=== PATIENT | male | born 1945 | race Caucasian/White ===

== ENCOUNTER → 2017-05-07 | Outpatient (REF) | payer MEDICARE ==
[2017-05-07 19:19] LABS: VITAMIN B12 LEVEL 407 PG/ML (247-911)
[2017-05-07 20:29] LABS: PERCENT SATURATION 21.5 % (19.7-50.0); TOTAL IRON BINDING CAPACITY 344 UG/DL (250-450)
[2017-05-08 12:44] LABS: PRETREATED FOLATE FOR RBCFOL 14.8 NG/ML
== END ==
LOC: M LAB REF 17:40
PROVIDERS: ATTEND Nurse Practitioner Adult Health
DX: R94.5 Abnormal results of liver function studies (principal)

== ENCOUNTER 2019-02-08 10:19 | Emergency (ER) | payer MEDICARE ==
[~2019-02-08] VITALS: Ht 172.7 cm; Wt 66.8 kg
[2019-02-08] MEDS ORDERED: RAMI1CAP22 (10:27)
[2019-02-08] MEDS ORDERED: INVO300T (10:27)
[2019-02-08] MEDS ORDERED: METF500T13 (10:27)
[2019-02-08] MEDS ORDERED: METO50TA7 (10:27)
[2019-02-08] MEDS ORDERED: NOVOINJ3 (10:27)
[2019-02-08] MEDS ORDERED: ATOR40TA75 (10:27)
[2019-02-08] MEDS ORDERED: JANU100T (10:27)
--- NOTE | 2019-02-08 11:46 | REP ---
Right lower extremity Duplex Doppler venous ultrasound: Real time compression and duplex Doppler interrogation of the right lower extremity deep venous system is performed. The right common femoral, superficial femoral and popliteal veins are fully compressible with transducer pressure and demonstrate normal spontaneous and phasic flow, without evidence of deep venous thrombosis. Impression: No evidence of deep venous thrombosis of the right lower extremity femoral popliteal venous system. Electronically Signed by Sampson Booker MD 02/08/2019 11:37 A
[2019-02-08 12:34] VITALS: BP 110/59
== END 2019-02-08 12:55 | disposition home or self-care (01) ==
LOC: M ED 10:19
DX: M62.831 Muscle spasm of calf (principal); M79.661 Pain in right lower leg; I10 Essential (primary) hypertension; E78.00 Pure hypercholesterolemia, unspecified; E11.9 Type 2 diabetes mellitus without complications; Z79.899 Other long term (current) drug therapy; Z79.4 Long term (current) use of insulin; Z88.2 Allergy status to sulfonamides; J30.1 Allergic rhinitis due to pollen

== ENCOUNTER 2019-06-14 09:10 | Emergency (ER) | payer MEDICARE, MEDICAID ==
[~2019-06-14] VITALS: Ht 170.2 cm; Wt 112.0 kg
[~2019-06-14 09:10] MED LIST: ATOR40TA75; INVO300T; JANU100T; METF500T13; METO50TA7; NOVOINJ3; RAMI1CAP22
[2019-06-14] MEDS ORDERED: LEVE1INJ5 (09:26)
[2019-06-14 10:00] LABS: BASO % 0.6 % (0.0-1.0); EOS # 0.1 10^3/uL (0.0-0.5); EOS % 1.7 % (0.0-3.0); HEMATOCRIT 43.6 % (42.0-52.0); HEMOGLOBIN 14.4 g/dl (13.5-17.5); LYMPH # 1.2 10^3/uL (1.5-5.0); LYMPH % 16.3 % (24.0-44.0); MEAN CORPUSCULAR HEMOGLOBIN 32.5 pg (27.0-33.0); MEAN CORPUSCULAR VOLUME 98.4 fl (80.0-96.0); MONO # 0.5 10^3/uL (0.0-0.8); MONO % 6.6 % (0.0-5.0); NEUTROPHILS # 5.3 10^3/uL (1.5-8.5); NEUTROPHILS % 74.5 % (36.0-66.0); PLATELET COUNT, AUTOMATED 162 10^3/uL (150-450); RED BLOOD COUNT 4.43 10^6/uL (4.30-6.10); WHITE BLOOD COUNT 7.1 10^3/uL (4.0-10.0)
[2019-06-14] MEDS ORDERED: ONDANSETRON 4 MG TAB (S0181) PO ONE (10:00)
[2019-06-14] MEDS ORDERED: MECLIZINE 25 MG TABLET PO ONE (10:00)
--- NOTE | 2019-06-14 10:08 | REP ---
CT brain without contrast: History: CVA. CT findings: Preliminary digital detacher radiograph is unremarkable. Bone window settings show minimal mucosal thickening in the right anterior ethmoid air cells. Visualized paranasal sinuses are otherwise clear. No bony calvarial lesion is seen. There is vascular calcification in the distal internal carotid arteries bilaterally. On soft tissue window settings, there is mild to moderate generalized atrophy. Booker-white differentiation pattern is intact. There is no evidence of intracranial hemorrhage. No extra-axial fluid collection is seen. No mass, infarct, or midline shift is seen. Impression: No acute intracranial abnormality. Electronically Signed by Meet Barnes MD 06/14/2019 10:06 A
--- NOTE | 2019-06-14 10:18 | REP ---
Clinical: Cerebrovascular accident . Comparison: None . Findings: The mediastinum and cardiac silhouette are stable and within normal limits for portable technique. The lung quick demonstrate chronic-appearing changes without acute consolidation, effusion, or pneumothorax. Skeletal structures are intact. Impression: No acute cardiopulmonary process appreciated. Electronically Signed by Jose Anderson MD 06/14/2019 10:09 A
[2019-06-14 10:31] LABS: ALBUMIN 3.6 GM/DL (3.2-5.2); ALT/SGPT 55 U/L (12-78); BILIRUBIN,TOTAL 0.4 MG/DL (0.2-1.0); BLOOD UREA NITROGEN 17 MG/DL (7-18); CALCIUM LEVEL 8.9 MG/DL (8.8-10.2); CARBON DIOXIDE LEVEL 31 MEQ/L (21-32); CHLORIDE LEVEL 106 MEQ/L (98-107); CREATININE FOR GFR 1.21 MG/DL (0.70-1.30); GLOMERULAR FILTRATION RATE > 60.0 (>42); GLUCOSE, FASTING 142 MG/DL (70-100); POTASSIUM SERUM 4.4 MEQ/L (3.5-5.1); SODIUM LEVEL 142 MEQ/L (136-145); TOTAL PROTEIN 7.2 GM/DL (6.4-8.2)
[2019-06-14 10:57] LABS: INR 1.3; PARTIAL THROMBOPLASTIN TIME 27.8 SECONDS (25.0-38.4)
[2019-06-14 11:19] LABS: CK-MB VALUE MASS 1.5 NG/ML (<3.6); CPK CREATINE PHOSPHOKINASE 105 U/L (39-308); MB/CK RELATIVE INDEX 1.43 (< OR =4); TROPONIN I < 0.02 NG/ML (< 0.10)
[2019-06-14 14:30] VITALS: BP 161/66
[2019-06-14] MEDS ORDERED: MECL-68 PO (14:32)
--- NOTE | 2019-06-14 14:32 | REP ---
MRI BRAIN WITHOUT CONTRAST: HISTORY: Cerebellar findings since 4:30 a.m. Comparison is made with today's CT study. TECHNIQUE: Axial and sagittal imaging planes are utilized for T1- and T2-weighted scans. Sequences include spin-echo, fast spin echo, FLAIR, and diffusion weighted sequences. MRI FINDINGS: No bony calvarial lesion is appreciated. Craniocervical junction and upper cervical cord are normal in appearance. There are mucosal changes in the maxillary sinuses bilaterally. No intraorbital abnormality is appreciated. There is mild generalized volume loss. There is a moderate small vessel atherosclerotic pattern of subcortical and periventricular white matter T2 hyperintensity in the supratentorial brain bilaterally. Diffusion weighted scans show no evidence of restricted diffusion to suggest acute ischemia. There is no evidence of recent intracranial hemorrhage. No extra-axial fluid collection, mass, or midline shift is seen. IMPRESSION: Generalized volume loss and small vessel atherosclerotic changes. No acute intracranial lesion. No evidence of acute ischemia. Electronically Signed by Meet Barnes MD 06/14/2019 02:47 P
--- NOTE | 2019-06-15 08:44 | ECGEPIP ---
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
== END 2019-06-14 15:15 | disposition home or self-care (01) ==
LOC: M ED 09:10
DX: H81.4 Vertigo of central origin (principal); I10 Essential (primary) hypertension; E11.9 Type 2 diabetes mellitus without complications; Z79.4 Long term (current) use of insulin; Z79.899 Other long term (current) drug therapy; Z88.2 Allergy status to sulfonamides

== ENCOUNTER → 2019-08-05 | Outpatient (REF) | payer MEDICARE, MEDICAID ==
[~2019-08-05] MED LIST changes: +LEVE1INJ5; +MECL1TAB31 PO
[2019-08-05 13:53] LABS: FOLATE 11.6 NG/ML
== END ==
LOC: M LAB REF 12:24
PROVIDERS: ATTEND Internal Medicine
DX: R26.89 Other abnormalities of gait and mobility (principal)

== ENCOUNTER 2019-09-04 21:33 | Observation (INO) | payer MEDICARE, MEDICAID ==
[~2019-09-04] VITALS: Ht 170.2 cm; Wt 107.3 kg
[~2019-09-04 21:33] MED LIST changes: -ATOR40TA75; +ATOR40TA75 PO; -INVO300T; +INVO300T PO; -LEVE1INJ5; +LEVE1INJ5 SC; -METF500T13; +METF500T13 PO; -METO50TA7; +METO50TA7 PO; -RAMI1CAP22; +RAMI1CAP22 PO
[2019-09-04 22:20] LABS: BASO # 0.1 10^3/uL (0.0-0.2); BASO % 0.6 % (0.0-1.0); EOS # 0.1 10^3/uL (0.0-0.5); EOS % 1.5 % (0.0-3.0); HEMATOCRIT 44.7 % (42.0-52.0); HEMOGLOBIN 15.2 g/dl (13.5-17.5); LYMPH # 1.5 10^3/uL (1.5-5.0); LYMPH % 17.3 % (24.0-44.0); MEAN CORPUSCULAR HEMOGLOBIN 32.5 pg (27.0-33.0); MEAN CORPUSCULAR VOLUME 95.5 fl (80.0-96.0); MONO # 0.8 10^3/uL (0.0-0.8); MONO % 9.9 % (0.0-5.0); NEUTROPHILS % 70.3 % (36.0-66.0); PLATELET COUNT, AUTOMATED 154 10^3/uL (150-450); RED BLOOD COUNT 4.68 10^6/uL (4.30-6.10); WHITE BLOOD COUNT 8.5 10^3/uL (4.0-10.0)
[2019-09-04 22:50] LABS: INFLUENZA A AMPLIFICATION POSITIVE (NEGATIVE); INFLUENZA B AMPLIFICATION NEGATIVE (NEGATIVE)
[2019-09-04] MEDS ORDERED: HEPARIN DRIP 25,000 UNITS in IV 1 EA IV SCH (23:21)
[2019-09-04] MEDS ORDERED: HEPARIN SOD (PORCINE) 5000 UNITS/ML VIAL (J1644 PER 1000UNITS) IV ONE (23:30)
[2019-09-04] MEDS ORDERED: CLOPIDOGREL 300 MG TAB (PLAVIX) PO ONE (23:30)
[2019-09-04] MEDS ORDERED: NS 500 ML IV ONE (23:30)
[2019-09-04] MEDS ORDERED: MECLIZINE 25 MG TABLET PO ONE (23:30)
[2019-09-04] MEDS ORDERED: NITROGLYCERIN 2% OINT 1 GM *U/D* PKT TOP ONE (23:30)
[2019-09-04] MEDS ORDERED: FUROSEMIDE 40 MG/4 ML VIAL (J1940) IV ONE (23:30)
[2019-09-05] MEDS ORDERED: ACETAMINOPHEN TAB 650MG DOSE (2X325MG) PO ONE (01:00)
[2019-09-05] MEDS ORDERED: OSELTAMIVIR PHOSPHATE 75 MG CAP (TAMIFLU) PO ONE (02:15)
[2019-09-05] MEDS ORDERED: GLUCOSE 4 GM CHEW TABLET PO PRN (04:00)
[2019-09-05] MEDS ORDERED: GLUCAGON FOR INJ 1 MG VIAL (J1610) SC PRN (04:00)
[2019-09-05] MEDS ORDERED: ACETAMINOPHEN TAB 650MG DOSE (2X325MG) PO PRN (04:00)
[2019-09-05] MEDS ORDERED: DEXTROSE 50% 50 ML SYRINGE IV PRN (04:00)
--- NOTE | 2019-09-05 04:09 | HPEPDOC ---
General Date of Admission 09/05/19 Date of Service: Sep 05, 2019 Chief Complaint The patient is a 74-year-old male admitted with a reason for visit of Dizziness. Source: Patient Exam Limitations: No limitations Timing/Duration: Day(s) Severity: Mild Associated Symptoms: Fever, Chills, Weakness, Dizziness History of Present Illness Patient is 74 years old male with past history type 2 diabetes, hyperlipidemia, coronary artery diseases, [place] presented hospital with fever and dizziness. Patient stated that for past 2 days he has been having chills, fever, muscle soreness and increased dizziness. In emergency room patient was found to have no leukocytosis, chest x-ray was done and it was negative for acute pulmonary infiltrate. Patient was tested positive for influenza A. Patient denied chest pain, palpitations, abdominal pain, diarrhea or dysuria Home Medications Scheduled Atorvastatin Calcium (Atorvastatin Calcium) 40 Mg Tablet, 40 MG PO DAILY, (Reported) Canagliflozin (Invokana) 300 Mg Tablet, 300 MG PO QHS, (Reported) Insulin Aspart (Novolog Flexpen) 100 Unit/1 Ml Insuln.pen, ACHS, (Reported) SLIDING SCALE Insulin Detemir (Levemir Flextouch) 100 Unit/1 Ml Insuln.pen, 60 UNITS SC DAILY, (Reported) Metformin HCl (Metformin HCl) 500 Mg Tablet, 500 MG PO BID, (Reported) Metoprolol Tartrate (Metoprolol Tartrate) 50 Mg Tablet, 50 MG PO BID, (Reported) Ramipril (Ramipril) 2.5 Mg Capsule, 2.5 MG PO DAILY, (Reported) Allergies Coded Allergies: Sulfa (Sulfonamide Antibiotics) (Verified Allergy, Mild, rash, 02/08/19) HAY FEVER (Verified Allergy, Unknown, 07/26/04) Past Medical History Medical History type 2 diabetes, hyperlipidemia, coronary artery diseases, [place] Surgical History Appendectomy Family History I personally reviewed the history and found not pertinent Social History * Smoker: Denies Alcohol: Denies Drugs: denies A-FIB/CHADSVASC A-FIB History Current/History of A-Fib/PAF?: No Current PO Anticoag Therapy: No Review of Systems Constitutional: Reports: Chills, Fever, Malaise, Weakness, Fatigue Eyes: Denies: Pain, Vision change ENT: Denies: Head Aches Skin: Denies: Rash, Lesions Pulmonary: Denies: Dyspnea, Cough Cardiovascular: Denies: Chest Pain Gastrointestinal: Denies: Nausea Genitourinary: Denies: Dysuria, Frequency Hematologic: Denies: Bruising, Bleeding Excessively Endocrine: Denies: Polydipsia, Polyphagia Musculoskeletal: Denies: Neck Pain, Back Pain Neurological: Denies: Weakness Psych: Reports: Mood Normal Physical Examination General Exam: Positive: Alert, Cooperative, Mild Distress Eye Exam: Positive: PERRLA ENT Exam: Positive: Atraumatic Neck Exam: Positive: Supple; Negative: JVD Chest Exam: Positive: Clear to auscultation Heart Exam: Positive: Rate Normal Telemetry: Positive: No significant arrhythmia Abdomen Exam: Positive: Normal bowel sounds Extremity Exam: Negative: Clubbing, Cyanosis Neuro Exam: Positive: Strength at 5/5 X4 ext Psych Exam: Positive: Mental status NL Vital Signs Vital Signs Date Time Temp Pulse Resp B/P (MAP) Pulse Ox O2 Delivery O2 Flow Rate FiO2 09/05/19 01:34 98.5 09/05/19 01:32 138/59 (85) 09/04/19 23:30 95 92 09/04/19 23:00 Room Air 09/04/19 21:45 20 Laboratory Data Labs 24H Laboratory Tests 2 09/04/19 22:07: Bedside Glucose (Misc Panel) 175H 09/04/19 22:08: POC Glucose (Misc Panel) 181H, POC Sodium (Misc Panel) 137, POC Potassium (Misc Panel) 3.9, POC Chloride (Misc Panel) 102, POC Total CO2 (Misc Panel) 23.0, POC Blood Urea Nitrogen (Misc Panel 12, POC Ionized Calcium (Misc Panel) 4.5, POC Creatinine (Misc Panel) 1.1, POC Hematocrit (Misc Panel) 46.0 09/04/19 22:09: Immature Granulocyte % (Auto) 0.4, Neutrophils (%) (Auto) 70.3H, Lymphocytes (%) (Auto) 17.3L, Monocytes (%) (Auto) 9.9H, Eosinophils (%) (Auto) 1.5, Basophils (%) (Auto) 0.6, Neutrophils # (Auto) 6.0, Lymphocytes # (Auto) 1.5, Monocytes # (Auto) 0.8, Eosinophils # (Auto) 0.1, Basophils # (Auto) 0.1, Nucleated Red Blood Cells % (auto) 0.0 09/04/19 22:11: Influenza Type A (RT-PCR) POSITIVEH, Influenza Type B (RT-PCR) NEGATIVE CBC/BMP Laboratory Tests 09/04/19 22:09 Assessment/Plan Patient is 74 years old male with past history type 2 diabetes, hyperlipidemia, coronary artery diseases, [place] presented hospital with fever and dizziness. Patient stated that for past 2 days he has been having chills, fever, muscle soreness and increased dizziness. In emergency room patient was found to have no leukocytosis, chest x-ray was done and it was negative for acute pulmonary infiltrate. Patient was tested positive for influenza A. Patient denied chest pain, palpitations, abdominal pain, diarrhea or dysuria Problems (1) Influenza A Status: Acute Problem Text: Tamiflu 75 mg for 5 days IV fluid Tylenol (2) Vertigo Status: Acute Problem Text: Most likely secondary to influenza A infection Supportive treatment Meclizine PT/OT (3) Diabetes mellitus Status: Chronic Problem Text: Diabetes diet Insulin sliding scale Detemir 60 units Plan / VTE VTE Prophylaxis Ordered?: Yes EMMA BAEZ DO Sep 05, 2019 04:09
[2019-09-05 05:05] VITALS: BP 126/64
[2019-09-05] MEDS: NS 1,000 ML IV SCH ×2 (05:24→16:17)
--- NOTE | 2019-09-05 08:01 | REP ---
Clinical: Cough. Comparison: 06/14/2019 . Technique: PA and lateral. Findings: The mediastinum and cardiac silhouette are normal. The lung quick are clear and without acute consolidation, effusion, or pneumothorax. The skeletal structures are intact and normal. Impression: 1. No acute cardiopulmonary process. Electronically Signed by Jose Anderson MD 09/05/2019 07:53 A
[2019-09-05] MEDS: METOPROLOL TART 50 MG TAB PO SCH ×2 (08:25→20:30)
[2019-09-05] MEDS: OSELTAMIVIR PHOSPHATE 75 MG CAP (TAMIFLU) PO SCH (08:26)
[2019-09-05] MEDS: ATORVASTATIN 20 MG TAB PO SCH (08:26)
[2019-09-05] MEDS: HumaLOG INSULIN (NovoLOG) PER UNIT SC SCH ×3 (08:27→17:35)
[2019-09-05] MEDS: LEVEMIR (INSULIN DETEMIR) 1 UNITS/0.01ML SC SCH (08:27)
--- NOTE | 2019-09-05 08:35 | ECGEPIP ---
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
[2019-09-05 14:00] VITALS: BP 130/64
--- NOTE | 2019-09-05 15:39 | IPNPDOC ---
Text Note Date of Service The patient was seen on 09/05/19. NOTE Subjective: -Admitted last night with flu A and dizziness of recent vestibular difficulties with ongoing outpatient PT for left hypofunction with current treatment for dynamic balance, specifically head movements while turning and gaze stabilization. -No complaints this morning, reports that he feels a bit better Objective General: Alert, NAD Eye: PERRLA, EOMI ENT: Atraumatic, congested Neck: Supple, JVD Chest: Clear to auscultation bilaterally without wheezing, crackles or rhonchi Heart: RRR, no mrg Abdomen: central obesity, normoactive, soft, NTND Extremity: WWP, no LE edema Neuro: Full Strength at 5/5 X4 in all four extremities, CN3-12 wnl Psych Exam: AOx3 Labd: CBC and BMP wnl Assessment: 74 yo M with type 2 diabetes, hyperlipidemia, CAD who presented hospital with fever and dizziness and found to have Flu A and worsening of his vestibular complaints. (1) Influenza A Status: Acute -Tamiflu 75 mg for 5 days, day 1 -IV fluids -Tylenol (2) Acute on chronic vestibular deficits with gait instability Status: had ongoing home PT for gait instability Problem Text: Most likely exacerbated by ongoing influenza A infection -Supportive treatment -PT/OT -Will hold of meclizine for now given reported improvement by patient (3) Diabetes mellitus -Insulin sliding scale -Levemir 60 units -hpoglycemia protocol DVT ppx: heparin VS,Fishbone, I+O VS, Fishbone, I+O Laboratory Tests 09/04/19 22:09 Vital Signs Date Time Temp Pulse Resp B/P (MAP) Pulse Ox O2 Delivery O2 Flow Rate FiO2 09/05/19 14:00 99.6 74 19 130/64 (86) 95 Room Air I&O- Last 24 Hours up to 6 AM 09/05/19 06:00 Intake Total 500 ml Balance 500 ml EDUARDO WALLER MD Sep 05, 2019 15:39
[2019-09-05] MEDS ORDERED: HumaLOG INSULIN (NovoLOG) PER UNIT SC SCH (21:00)
[2019-09-05 22:00] VITALS: BP 122/60
[2019-09-06] MEDS: NS 1,000 ML IV SCH (02:20)
[2019-09-06 06:00] VITALS: BP 107/56
[2019-09-06 06:13] LABS: HEMATOCRIT 37.7 % (42.0-52.0); MEAN CORPUSCULAR HEMOGLOBIN 32.6 pg (27.0-33.0); MEAN CORPUSCULAR HGB CONC 33.7 g/dl (32.0-36.5); MEAN CORPUSCULAR VOLUME 96.9 fl (80.0-96.0); PLATELET COUNT, AUTOMATED 132 10^3/uL (150-450); RED BLOOD COUNT 3.89 10^6/uL (4.30-6.10)
[2019-09-06 06:19] LABS: HEMOGLOBIN 12.7 g/dl (13.5-17.5)
[2019-09-06 06:31] LABS: BLOOD UREA NITROGEN 11 MG/DL (7-18); CARBON DIOXIDE LEVEL 28 MEQ/L (21-32); CHLORIDE LEVEL 111 MEQ/L (98-107); CREATININE FOR GFR 0.96 MG/DL (0.70-1.30); GLOMERULAR FILTRATION RATE > 60.0 (>42); GLUCOSE, FASTING 104 MG/DL (70-100); POTASSIUM SERUM 3.6 MEQ/L (3.5-5.1); SODIUM LEVEL 140 MEQ/L (136-145)
[2019-09-06] MEDS: HumaLOG INSULIN (NovoLOG) PER UNIT SC SCH ×2 (07:58→12:27)
[2019-09-06] MEDS: OSELTAMIVIR PHOSPHATE 75 MG CAP (TAMIFLU) PO SCH (07:58)
[2019-09-06] MEDS: ATORVASTATIN 20 MG TAB PO SCH (08:00)
[2019-09-06 08:01] VITALS: BP 122/78
[2019-09-06] MEDS: METOPROLOL TART 50 MG TAB PO SCH (08:01)
[2019-09-06] MEDS: LEVEMIR (INSULIN DETEMIR) 1 UNITS/0.01ML SC SCH (08:01)
[2019-09-06] MEDS ORDERED: ACET1TAB55 PO (12:18)
[2019-09-06] MEDS ORDERED: OSEL75CA2 PO (12:18)
[2019-09-06 14:00] VITALS: BP 137/93
--- NOTE | 2019-09-07 00:49 | IPNPDOC ---
Text Note Date of Service The patient was seen on 09/06/19. NOTE Subjective: -No complaints this morning, PT is ongoing, doing better Objective General: Alert, NAD Eye: PERRLA, EOMI ENT: Atraumatic, congested Neck: Supple, JVD Chest: Clear to auscultation bilaterally without wheezing, crackles or rhonchi Heart: RRR, no mrg Abdomen: central obesity, normoactive, soft, NTND Extremity: WWP, no LE edema Neuro: Full Strength at 5/5 X4 in all four extremities, CN3-12 wnl Psych Exam: AOx3 Lab: CBC and BMP wnl Assessment: 74 yo M with type 2 diabetes, hyperlipidemia, CAD who presented hospital with fever and dizziness and found to have Flu A and worsening of his chronic vestibular complaints. (1) Influenza A Status: Acute -Tamiflu 75 mg for 5 days, day 1 -D/C IV fluids, taking adequate PO -Tylenol PRN (2) Acute on chronic vestibular deficits with gait instability Status: had ongoing home PT for gait instability Problem Text: Most likely exacerbated by ongoing influenza A infection -Supportive treatment -pending PT/OT recs -Will not give meclizine for now given reported improvement by patient (3) Diabetes mellitus -Insulin sliding scale -Levemir 60 units -hypoglycemia protocol DVT ppx: heparin VS,Fishbone, I+O VS, Fishbone, I+O Laboratory Tests 09/06/19 05:15 Vital Signs Date Time Temp Pulse Resp B/P (MAP) Pulse Ox O2 Delivery O2 Flow Rate FiO2 09/05/19 22:00 99.8 78 17 122/60 (80) 94 Room Air I&O- Last 24 Hours up to 6 AM 09/06/19 06:00 Intake Total 2760 ml Output Total 1100 ml Balance 1660 ml EDUARDO WALLER MD Sep 06, 2019 07:38
--- NOTE | 2019-09-07 00:58 | DS.PDOC ---
Discharge Summary General Date of Admission Sep 04, 2019 at 21:34 Date of Discharge 09/05/2019 Attending Physician: EDUARDO WALLER MD Discharge Summary PROCEDURES PERFORMED DURING STAY: None ADMITTING DIAGNOSES: 1. Influenza A. DISCHARGE DIAGNOSES: 1. Influenza A 2. Vertigo 3. type 2 diabetes 4. hyperlipidemia 5. coronary artery diseases COMPLICATIONS/CHIEF COMPLAINT: Influenza A, Vertigo. HISTORY OF PRESENT ILLNESS: 74 years old man with type 2 diabetes, hyperlipid emia, coronary artery diseases, [place] presented hospital with fever and dizziness. Patient stated that for 2 days he had been having chills, fever, muscle soreness and increased dizziness. HOSPITAL COURSE: In emergency room patient was found to have no leukocytosis, chest x-ray was done and it was negative for acute pulmonary infiltrate. Patient was tested positive for influenza A. Patient denied chest pain, palpitations, abdominal pain, diarrhea or dysuria. He was admitted for supportive treatment and PT for his chronic vestibular issues and he improved. He is now being discharged home where he will complete a tamiflu course and follow up with his PCP. DISCHARGE MEDICATIONS: Please see below. ALLERGIES: Please see below. PHYSICAL EXAMINATION ON DISCHARGE: VITAL SIGNS: Please see below. General: Alert, NAD Eye: PERRLA, EOMI ENT: Atraumatic, congested Neck: Supple, JVD Chest: Clear to auscultation bilaterally without wheezing, crackles or rhonchi Heart: RRR, no mrg Abdomen: central obesity, normoactive, soft, NTND Extremity: WWP, no LE edema Neuro: Full Strength at 5/5 X4 in all four extremities, CN3-12 wnl Psych Exam: AOx3 Labd: CBC and BMP wnl LABORATORY DATA: Please see below. IMAGING: CXR without acute pathology PROGNOSIS: Good ACTIVITY: As tolerated. DIET: Regular DISCHARGE PLAN: Home DISPOSITION: 01 Home, Self-Care. DISCHARGE INSTRUCTIONS: 1. Home to complete tamiflu ITEMS TO FOLLOWUP ON ON OUTPATIENT: 1. Post discharge PCP follow up DISCHARGE CONDITION: Stable. TIME SPENT ON DISCHARGE: 46 minutes. Vital Signs/I&Os Vital Signs Date Time Temp Pulse Resp B/P (MAP) Pulse Ox O2 Delivery O2 Flow Rate FiO2 09/06/19 14:00 98.7 65 19 137/93 (108) 95 Room Air I&O- Last 24 Hours up to 6 AM 09/07/19 06:00 Intake Total 880 ml Output Total 220 ml Balance 660 ml Laboratory Data Labs 24H Laboratory Tests 2 09/06/19 05:15: Nucleated Red Blood Cells % (auto) 0.0, Anion Gap 1L, Glomerular Filtration Rate > 60.0, Calcium Level 8.0L, Magnesium Level 2.0 09/06/19 11:35: Bedside Glucose (Misc Panel) 172H CBC/BMP Laboratory Tests 09/06/19 05:15 FSBS Laboratory Tests Test 09/06/19 11:35 Range/Units Bedside Glucose (Misc Panel) 172 83-110 MG/DL Discharge Medications Scheduled Atorvastatin Calcium (Atorvastatin Calcium) 40 Mg Tablet, 40 MG PO DAILY, (Reported) Canagliflozin (Invokana) 300 Mg Tablet, 300 MG PO QHS, (Reported) Insulin Aspart (Novolog Flexpen) 100 Unit/1 Ml Insuln.pen, ACHS, (Reported) SLIDING SCALE Insulin Detemir (Levemir Flextouch) 100 Unit/1 Ml Insuln.pen, 60 UNITS SC DAILY, (Reported) Metformin HCl (Metformin HCl) 500 Mg Tablet, 500 MG PO BID, (Reported) Metoprolol Tartrate (Metoprolol Tartrate) 50 Mg Tablet, 50 MG PO BID, (Reported) Oseltamivir Phosphate (Oseltamivir Phosphate) 75 Mg Capsule, 75 MG PO DAILY Ramipril (Ramipril) 2.5 Mg Capsule, 2.5 MG PO DAILY, (Reported) Scheduled PRN Acetaminophen (Acetaminophen) 325 Mg Tablet, 650 MG PO Q6HP PRN for fever Allergies Coded Allergies: Sulfa (Sulfonamide Antibiotics) (Verified Allergy, Mild, rash, 02/08/19) HAY FEVER (Verified Allergy, Unknown, 07/26/04) EDUARDO WALLER MD Sep 07, 2019 00:58
== END 2019-09-06 14:43 | disposition home or self-care (01) ==
LOC: M ED 21:33 → M ED INP 21:34 → ENRESERVDT 09-05 04:34 → ENRESERVTM 09-05 04:34 → M MSPAV 09-05 05:05
PROVIDERS: ADMIT Internal Medicine; ATTEND Internal Medicine
DX: J09.X2 Influenza due to identified novel influenza A virus with other respiratory manifestations (principal); R42 Dizziness and giddiness; R26.89 Other abnormalities of gait and mobility; E11.9 Type 2 diabetes mellitus without complications; E78.5 Hyperlipidemia, unspecified; I11.9 Hypertensive heart disease without heart failure; I25.10 Atherosclerotic heart disease of native coronary artery without angina pectoris; I25.2 Old myocardial infarction; Z79.899 Other long term (current) drug therapy; Z79.4 Long term (current) use of insulin; Z88.2 Allergy status to sulfonamides
CPT/HCPCS: 36415; 71046; 80047; 80048; 83735; 85025; 85027; 87502; 93005; 96360; 96361; 97116; 97530; 99285; G0378

== ENCOUNTER 2020-09-04 13:26 | Emergency (ER) | payer MEDICARE, MEDICAID ==
[~2020-09-04] VITALS: Ht 172.7 cm; Wt 112.7 kg
[~2020-09-04 13:26] MED LIST changes: +ACET1TAB55 PO; +OSEL75CA2 PO
[2020-09-04] MEDS ORDERED: MECLIZINE 25 MG TABLET PO ONE (14:00)
[2020-09-04 14:07] LABS: BASO # 0.1 10^3/uL (0.0-0.2); BASO % 0.8 % (0.0-1.0); EOS # 0.2 10^3/uL (0.0-0.5); EOS % 2.4 % (0.0-3.0); HEMATOCRIT 41.4 % (42.0-52.0); HEMOGLOBIN 13.6 g/dl (13.5-17.5); LYMPH # 1.4 10^3/uL (1.5-5.0); LYMPH % 17.4 % (24.0-44.0); MEAN CORPUSCULAR HEMOGLOBIN 31.3 pg (27.0-33.0); MEAN CORPUSCULAR HGB CONC 32.9 g/dl (32.0-36.5); MEAN CORPUSCULAR VOLUME 95.2 fl (80.0-96.0); MONO # 0.5 10^3/uL (0.0-0.8); MONO % 6.6 % (2.0-8.0); NEUTROPHILS # 5.7 10^3/uL (1.5-8.5); NEUTROPHILS % 72.4 % (36.0-66.0); PLATELET COUNT, AUTOMATED 160 10^3/uL (150-450); RED BLOOD COUNT 4.35 10^6/uL (4.30-6.10); WHITE BLOOD COUNT 7.9 10^3/uL (4.0-10.0)
--- OUTSIDE RECORDS SUMMARY | 2020-09-04 14:25 | CCD | Continuity of Care Document ---
Author Author Med MELARA DPM Organization Unknown Address [address] [facility], [address] [place] [address] Phone [phone] Care Team Providers Care Child & Adolescent Psychiatrist Name Role Phone Storm Landry JR, M.D. AUTM [phone] Problems Active Problems Provider Date Type 2 diabetes mellitus Riki Melara DPM Onset: 017 Plantar fascial fibromatosis Riki Melara DPM Onset: Corns and callus Riki Melara DPM Onset: 01/07/2017 Onychomycosis Riki Melara DPM Onset: 06/30/2019 Social History Type Date Description Comments Sex Unknown ETOH Use Denies alcohol use Tobacco Use Start: Unknown Patient has never smoked Allergies, Adverse Reactions, Alerts Active Allergies Reaction Severity Comments Date Sulfa rash 12/09/2016 Medications Active Medications SIG Qnty Indications Ordering Provide r Date Naproxen 500mg Tablets 1 tab twice daily with food 30tabs Riki Melara DPM 12/09/2016 Levemir Flextouch 10 0Unit/ML Solution Pen-Inject [place] Metoprolol Tartrate 50mg Tablets Ramon Mccormack,Mitzi Novolog Flexpen 100U nit/ML Solution Pen-Inject [place] Januvia 100mg Tablets Ramon Mccormack,Mitzi Atorvastatin Calcium 40mg Tablets Storm Landry JR, M.D. Ramipril 2.5mg Capsules Frantz REYNOSO M.D.,[place] Aspir-81 Unknown Invokana Unknown Pentips 32G X 4 mm Misc Frantz REYNOSO M.D.,[place] Meclizine HCL 25mg Tablets Unknown Metformin HCL 500mg Tablets Frantz REYNOSO M.D.,[place] Immunizations Description No Information Available Vital Signs Date Vital Result Comment 03/14/2020 9:10am Height 66 inches 5'6" Weight 245.00 lb BP Systolic 124 mmHg BP Diastolic 88 mmHg Heart Rate 72 /min BMI (Body Mass Index) 39.5 kg/m2 09/02/2017 1:22pm Height 66 inches 5'6" Weight 254.00 lb BMI (Body Mass Index) 41.0 kg/m2 Results Description No Information Available Procedures Date Code Description Status 08/01/2020 11676 Debridement 6-10 Nails Electric Completed 08/01/2020 00672 Paring/Cut Benign Lesion 2 To 4 Completed 05/23/2020 19461 Debridement 6-10 Nails Electric Completed 05/23/2020 31985 Paring/Cut Benign Lesion 2 To 4 Completed 03/14/2020 76646 Debridement 6-10 Nails Electric Completed 03/14/2020 08159 Paring/Cut Benign Lesion 2 To 4 Completed Medical Devices Description No Information Available Encounters Type Date Location Provider Dx Diagnosis Office Visit 03/14/2020 10:30a [place] [facility] Riki Melara DPM M79.676 Pain in unspecified toe(s) 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 B35.1 Tinea unguium L84 Corns and callosities Assessments Date Code Description Provider 08/01/2020 B35.1 Tinea unguium Riki Melara DPM 08/01/2020 E11.42 Type 2 diabetes mellitus with di abetic polyneuropathy Riki Melara DPM 08/01/2020 L84 Corns and callosities Riki Melara DPM 07/09/2020 E11.42 Type 2 diabetes mellitus with di abetic polyneuropathy Riki Melara DPM 07/09/2020 M72.2 Plantar fascial fibromatosis And yaquelin Melara DPM 05/23/2020 B35.1 Tinea unguium Riki Melara, [place] 05/23/2020 E11.42 Type 2 diabetes mellitus with di abetic polyneuropathy Riki Melara, [place] 05/23/2020 L84 Corns and callosities Riki Melara, [place] 03/14/2020 M79.676 Pain in unspecified toe(s) Abel Melara, [place] 03/14/2020 E11.42 Type 2 diabetes mellitus with di abetic polyneuropathy Riki Melara, [place] 03/14/2020 B35.1 Tinea unguium Riki Melara, [place] 03/14/2020 L84 Corns and callosities Riki Melara DPM Plan of Treatment Future Appointment(s):* 10/10/2020 9:00 am - Riki Melara DPM at [facility] Functional Status Description No Information Available Mental Status Description No Information Available Referrals Description No Information Available
--- OUTSIDE RECORDS SUMMARY | 2020-09-04 14:25 | CCD | Continuity of Care Document ---
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 AUTM [phone] Problems Active Problems Provider Date Type 2 [...] tab twice daily with food 30tabs Riki Melraa DPM 12/09/2016 Levemir Flextouch 10 0Unit/ML Solution Pen-Inject [place] Metoprolol Tartrate 50mg Tablets Ramon Mccormack,Mitzi Novolog Flexpen 100U nit/ML Solution Pen-Inject [place] Januvia 100mg Tablets Ramon Mccormack,Mitzi Atorvastatin Calcium 40mg Tablets Storm Landry JR, M.D. Ramipril 2.5mg Capsules Frantz REYNOSO M.D.,[place] Aspir-81 Unknown Invokana Unknown Pentips 32G X 4 mm Misc Frantz REYNOSO M.D.,[place] Meclizine HCL 25mg Tablets Unknown Metformin HCL 500mg Tablets Frantz REYNOSO M.D.,[place] Immunizations Description No Information Available Vital Signs Date Vital Result Comment 03/14/2020 9:10am Height 66 inches 5'6" Weight 245.00 lb BP Systolic 124 mmHg BP Diastolic 88 mmHg Heart Rate 72 /min BMI (Body Mass Index) 39.5 kg/m2 09/02/2017 1:22pm Height 66 inches 5'6" Weight 254.00 lb BMI (Body Mass Index) 41.0 kg/m2 Results Description No Information Available Procedures Date Code Description Status 05/23/2020 58030 Debridement 6-10 Nails Electric Completed 05/23/2020 30280 Paring/Cut Benign Lesion 2 To 4 Completed 03/14/2020 25251 Debridement 6-10 Nails Electric Completed 03/14/2020 76191 Paring/Cut Benign Lesion 2 To 4 Completed Medical Devices Description No Information Available Encounters Type Date Location Provider Dx Diagnosis Office Visit 03/14/2020 10:30a [place] [facility] Riki Melara, [place] M79.676 Pain in unspecified toe(s) 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 B35.1 Tinea unguium L84 Corns and callosities Assessments Date Code Description Provider 07/09/2020 E11.42 Type 2 diabetes mellitus with di abetic polyneuropathy Riki Melara, [place] 07/09/2020 M72.2 Plantar fascial fibromatosis And yaquelin Melara, [place] 05/23/2020 B35.1 Tinea unguium Riki Melara DPM 05/23/2020 E11.42 Type 2 diabetes mellitus with di abetic polyneuropathy Riki Melara DPM 05/23/2020 L84 Corns and callosities Riki Melara DPM 03/14/2020 M79.676 Pain in unspecified toe(s) Abel Melara DPM 03/14/2020 E11.42 Type 2 diabetes mellitus with di abetic polyneuropathy Riki Melara DPM 03/14/2020 B35.1 Tinea unguium Riki Melara DPM 03/14/2020 L84 Corns and callosities Riki Melara DPM Plan of Treatment Future Appointment(s):* 08/01/2020 9:00 am - Riki Melara DPM at [facility] Functional Status Description No Information Available Mental Status Description No Information Available Referrals Description No Information Available
--- OUTSIDE RECORDS SUMMARY | 2020-09-04 14:25 | CCD | Continuity of Care Document ---
Author Author Med MELARA DPM Organization Unknown Address 3 [facility], [facility] [address] [place] [address] Phone [phone] Care Team Providers Care Engraver Tire Mold Name Role Phone Storm Landry JR, M.D. AUTM [phone] Problems Active Problems Provider Date Type 2 [...] 12/09/2016 Levemir Flextouch 10 0Unit/ML Solution Pen-Inject HudsonTanya Mcdaniel Metoprolol Tartrate 50mg Tablets Ramon Mccormack,Mitzi Novolog Flexpen 100U nit/ML Solution Pen-Inject Hudson[place]anya Mcdaniel Januvia 100mg Tablets Ramon Mccormack,Mitzi Atorvastatin [...] Available Procedures Date Code Description Status 05/23/2020 50422 Debridement 6-10 Nails Electric Completed 05/23/2020 31362 Paring/Cut Benign Lesion 2 To 4 Completed 03/14/2020 20196 Debridement 6-10 Nails Electric Completed 03/14/2020 61603 Paring/Cut Benign Lesion 2 To 4 Completed Medical Devices Description No Information Available Encounters Type Date Location Provider Dx Diagnosis Office Visit 03/14/2020 10:30a [place] [facility] Riki Melara, ELMER M79.676 Pain in unspecified toe(s) 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 B35.1 Tinea unguium L84 Corns and callosities Assessments Date Code Description Provider 05/23/2020 B35.1 Tinea unguium Riki Melara, ELMER 05/23/2020 E11.42 Type 2 diabetes mellitus with di abetic polyneuropathy Riki Melara, ELMER 05/23/2020 L84 Corns and callosities Riki Melara DPM 03/14/2020 M79.676 Pain in unspecified toe(s) Abel Melara, ELMER 03/14/2020 E11.42 Type 2 diabetes mellitus with di abetic polyneuropathy Riki Melara DPM 03/14/2020 B35.1 Tinea unguium Riki Melara DPM 03/14/2020 L84 Corns and callosities Riki Melara DPM Plan of Treatment Future Appointment(s):* 08/01/2020 9:00 am - Riki Melara DPM at [facility] Functional Status Description No Information Available Mental Status Description No Information Available Referrals Description No Information Available
--- OUTSIDE RECORDS SUMMARY | 2020-09-04 14:25 | CCD | Continuity of Care Document ---
Author Author Med MELARA DPM Organization Unknown Address 3 [facility], [facility] [address] [place] [address] Phone [phone] Care Team Providers Care It Risk And Assurance Senior Manager Name Role Phone Storm Landry JR, M.D. AUTM [phone] Problems Active Problems Provider Date Type 2 [...] 12/09/2016 Levemir Flextouch 10 0Unit/ML Solution Pen-Inject [place]anya Mcdaniel Metoprolol Tartrate 50mg Tablets Ramon Mccormack,Mitzi Novolog Flexpen 100U nit/ML Solution Pen-Inject [place] Mcdaniel Januvia 100mg Tablets Ramon Mccormack,Mitzi Atorvastatin [...] Available Procedures Date Code Description Status 05/23/2020 31212 Debridement 6-10 Nails Electric Completed 05/23/2020 00148 Paring/Cut Benign Lesion 2 To 4 Completed 03/14/2020 15900 Debridement 6-10 Nails Electric Completed 03/14/2020 62086 Paring/Cut Benign Lesion 2 To 4 Completed Medical Devices Description No Information Available Encounters Type Date Location Provider Dx Diagnosis Office Visit 03/14/2020 10:30a [place] [facility] Riki Melara, ELMER M79.676 Pain in [...] am - Riki Melara DPM at [facility] Functional Status Description No Information Available Mental Status Description No Information Available Referrals Description No Information Available
--- OUTSIDE RECORDS SUMMARY | 2020-09-04 14:25 | CCD | Continuity of Care Document ---
Author Author Med MELARA DPM Organization Unknown Address 3 [facility], [facility] [address] [place] [address] Phone [phone] Care Team Providers Care Hydropulper Operator Name Role Phone Storm Landry JR, M.D. AUTM [phone] Problems Active Problems Provider Date Type 2 [...] 12/09/2016 Levemir Flextouch 10 0Unit/ML Solution Pen-Inject [place] M[place] Metoprolol Tartrate 50mg Tablets Ramon Mccormack,Mitzi Novolog Flexpen 100U nit/ML Solution Pen-Inject [place] Januvia 100mg Tablets Ramon Mccormack,Mitzi Atorvastatin [...] Available Procedures Date Code Description Status 05/23/2020 16367 Debridement 6-10 Nails Electric Completed 05/23/2020 39212 Paring/Cut Benign Lesion 2 To 4 Completed 03/14/2020 88173 Debridement 6-10 Nails Electric Completed 03/14/2020 08127 Paring/Cut Benign Lesion 2 To 4 Completed Medical Devices Description No Information Available Encounters Type Date Location Provider Dx Diagnosis Office Visit 03/14/2020 10:30a [place] [facility] Riki Melara, ELMER M79.676 Pain in [...] 9:00 am - Riki Melara DPM at [facility] Functional Status Description No Information Available Mental Status Description No Information Available Referrals Description No Information Available
--- OUTSIDE RECORDS SUMMARY | 2020-09-04 14:25 | CCD | Continuity of Care Document ---
Author Author Med MELARA DPM Organization Unknown Address 3 [facility], [address] [place] [address] Phone [phone] Care Team Providers Care Building Components Designer Name Role Phone Storm Landry JR, M.D. AUTM [phone] Problems Active Problems Provider Date Type 2 [...] 12/09/2016 Levemir Flextouch 10 0Unit/ML Solution Pen-Inject [place] Metoprolol Tartrate 50mg Tablets Ramon Mccormack,Mitzi Novolog Flexpen 100U nit/ML Solution Pen-Inject [place] M[place] Januvia 100mg Tablets Ramon Mccormack,Mitzi Atorvastatin Calcium 40mg Tablets Storm Landry JR, M.D. Ramipril 2.5mg Capsules Frantz REYNOSO M.D.,[place] Aspir-81 Unknown Invokana Unknown Pentips 32G X 4 mm Misc Frantz REYNOSO M.D.,[place] Meclizine HCL 25mg Tablets Unknown Metformin HCL 500mg Tablets Frantz REYNOSO M.D.,[place] Immunizations Description No Information Available Vital Signs [...] Available Procedures Date Code Description Status 05/23/2020 07269 Debridement 6-10 Nails Electric Completed 05/23/2020 90237 Paring/Cut Benign Lesion 2 To 4 Completed 03/14/2020 96965 Debridement 6-10 Nails Electric Completed 03/14/2020 86855 Paring/Cut Benign Lesion 2 To 4 Completed Medical Devices Description No Information Available Encounters Type Date Location Provider Dx Diagnosis Office Visit 03/14/2020 10:30a [place] [facility] Riki Melara, EL[place] M79.676 Pain in [...] 9:00 am - Riki Melara DPM at [facility] Functional Status Description No Information Available Mental Status Description No Information Available Referrals Description No Information Available
--- OUTSIDE RECORDS SUMMARY | 2020-09-04 14:26 | CCD ---
Author Author [facility] Organization [facility] Address Unknown Phone Unavailable Care Team Providers Care Surveillance Systems Engineer Name Role Phone Jessy Landry MD Unavailable Unavailable Jessy Landry MD Unavailable Unavailable Jessy Landry MD Unavailable Unavailable Jessy Landry MD Unavailable Unavailable Jessy Landry MD Unavailable Unavailable Jessy Landry MD Unavailable Unavailable Jessy Landry MD Unavailable Unavailable Jessy Landry MD Unavailable Unavailable Jessy Landry MD Unavailable Unavailable Jessy Landry MD Unavailable Unavailable Jessy Landry MD Unavailable Unavailable Jessy Landry MD Unavailable Unavailable Jessy Landry MD Unavailable Unavailable Jessy Landry MD Unavailable Unavailable Jessy Landry MD Unavailable Unavailable Jessy Landry MD Unavailable Unavailable Jessy Landry MD Unavailable Unavailable Jessy Landry MD Unavailable Unavailable Jessy Landry MD Unavailable Unavailable Jessy Landry MD Unavailable Unavailable Jessy Landry MD Unavailable Unavailable Jessy Landry MD Unavailable Unavailable Jessy Landry MD Unavailable Unavailable Jessy Landry MD Unavailable Unavailable Jessy Landry MD Unavailable Unavailable Jessy Landry MD Unavailable Unavailable Jessy Landry MD Unavailable Unavailable Jessy Landry MD Unavailable Unavailable Jessy Landry MD Unavailable Unavailable Jessy Landry MD Unavailable Unavailable Jessy Landry MD Unavailable Unavailable Jessy Landry MD Unavailable Unavailable Jessy Landry MD Unavailable Unavailable Jessy Landry MD Unavailable Unavailable Jessy Landry MD Unavailable Unavailable Jessy Landry MD Unavailable Unavailable FrantzJessy MD Unavailable Unavailable Arrow RockJessy MD Unavailable Unavailable FrantzJessy MD Unavailable Unavailable FrantzJessy MD Unavailable Unavailable FrantzJessy MD Unavailable Unavailable Arrow RockJessy MD Unavailable Unavailable FrantzJessy MD Unavailable Unavailable Arrow RockJessy MD Unavailable Unavailable Arrow RockJessy MD Unavailable Unavailable FrantzJessy MD Unavailable Unavailable FrantzJessy MD Unavailable Unavailable Arrow RockJessy MD Unavailable Unavailable FrantzJessy MD Unavailable Unavailable Arrow RockJessy MD Unavailable Unavailable FrantzJessy MD Unavailable Unavailable FrantzJessy MD Unavailable Unavailable FrantzJessy MD Unavailable Unavailable FrantzJessy MD Unavailable Unavailable FrantzJessy MD Unavailable Unavailable Arrow RockJessy MD Unavailable Unavailable Arrow RockJessy MD Unavailable Unavailable FrantzJessy MD Unavailable Unavailable Arrow RockJessy MD Unavailable Unavailable FrantzJessy MD Unavailable Unavailable FrantzJessy MD Unavailable Unavailable Arrow RockJessy MD Unavailable Unavailable FrantzJessy MD Unavailable Unavailable FrantzJessy MD Unavailable Unavailable FrantzJessy MD Unavailable Unavailable Arrow RockJessy MD Unavailable Unavailable FrantzJessy MD Unavailable Unavailable Arrow RockJessy MD Unavailable Unavailable FrantzJessy MD Unavailable Unavailable FrantzJessy MD Unavailable Unavailable Arrow RockJessy MD Unavailable Unavailable FrantzJessy berry MD Unavailable Unavailable FrantzJessy MD Unavailable Unavailable Arrow RockJessy MD Unavailable Unavailable FrantzJessy MD Unavailable Unavailable Arrow RockJessy MD Unavailable Unavailable FrantzJessy MD Unavailable Unavailable Arrow RockJessy MD Unavailable Unavailable FrantzJessy MD Unavailable Unavailable Arrow RockJessy MD Unavailable Unavailable FrantzJessy MD Unavailable Unavailable FrantzJessy MD Unavailable Unavailable Arrow RockJessy MD Unavailable Unavailable FrantzJessy MD Unavailable Unavailable Arrow RockJessy MD Unavailable Unavailable Arrow RockJessy MD Unavailable Unavailable Tiarra Aguilar MD, FACS Unavailable Unavailable Tiarra Aguilar MD, FACS Unavailable Unavailable Tiarra Aguilar MD, FACS Unavailable Unavailable Tiarra Aguilar MD, FACS Unavailable Unavailable Tiarra Aguilar MD, FACS Unavailable Unavailable Shah Lowery, Tiarra Devlin MD, FACS Unavailable Unavailable Shah Lowery, Tiarra Devlin MD, FACS Unavailable Unavailable Shah Lowery, Tiarra Devlin MD, FACS Unavailable Unavailable Shah Lowery, Tiarra Devlin MD, FACS Unavailable Unavailable Shah Lowery, Tiarra Devlin MD, FACS Unavailable Unavailable Shah Lowery, Tiarra Devlin MD, FACS Unavailable Unavailable Shah Lowery, Tirara Devlin MD, FACS Unavailable Unavailable Shah Lowery, Tiarra Devlin MD, FACS Unavailable Unavailable Shah Lowery, Tiarra Devlin MD, FACS Unavailable Unavailable Shah Lowery, Tiarra Devlin MD, FACS Unavailable Unavailable Sahh Lowery, Tiarra Devlin MD, FACS Unavailable Unavailable Shah Lowery, Tiarra Devlin MD, FACS Unavailable Unavailable Shah Lowery, Tiarra Devlin MD, FACS Unavailable Unavailable Shah Lowery, Tiarra Devlin MD, FACS Unavailable Unavailable Shah Lowery, Tiarra Devlin MD, FACS Unavailable Unavailable Shah Lowery, Tiarra Devlin MD, FACS Unavailable Unavailable Shah Lowery, Tiarra Devlin MD, FACS Unavailable Unavailable Shah Lowery, Tiarra Devlin MD, FACS Unavailable Unavailable Shah Lowery, Tiarra Devlin MD, FACS Unavailable Unavailable Shah Lowery, Tiarra Devlin MD, FACS Unavailable Unavailable Shah Lowery, Tiarra Devlin MD, FACS Unavailable Unavailable Shah Lowery, Tiarra Devlin MD, FACS Unavailable Unavailable Shah Lowery, Tiarra Devlin MD, FACS Unavailable Unavailable Shah Lowery, Tiarra Devlin MD, FACS Unavailable Unavailable Shah Lowery, Tiarra Devlin MD, FACS Unavailable Unavailable Shah Lowery, Tiarra Devlin MD, FACS Unavailable Unavailable Shah Lowery, Tiarra Devlin MD, FACS Unavailable Unavailable Shah Lowery, Tiarra Devlin MD, FACS Unavailable Unavailable Shah Lowery, Tiarra Devlin MD, FACS Unavailable Unavailable MAJAK, R SUNNY DPM Unavailable Unavailable MAJAK, R SUNNY DPM Unavailable Unavailable MAJAK, R SUNNY DPM Unavailable Unavailable MAJAK, R SUNNY DPM Unavailable Unavailable MAJAK, R SUNNY DPM Unavailable Unavailable MAJAK, R SUNNY DPM Unavailable Unavailable MAJAK, R SUNNY DPM Unavailable Unavailable MAJAK, R SUNNY DPM Unavailable Unavailable MAJAK, R SUNNY DPM Unavailable Unavailable MAJAK, R SUNNY DPM Unavailable Unavailable MAJAK, R SUNNY DPM Unavailable Unavailable MAJAK, R SUNNY DPM Unavailable Unavailable MAJAK, R SUNNY DPM Unavailable Unavailable MAJAK, R SUNNY DPM Unavailable Unavailable MAJAK, R SUNNY DPM Unavailable Unavailable MAJAK, R SUNNY DPM Unavailable Unavailable MAJAK, R SUNNY DPM Unavailable Unavailable MAJAK, R SUNNY DPM Unavailable Unavailable MAJAK, R SUNNY DPM Unavailable Unavailable MAJAK, R SUNNY DPM Unavailable Unavailable MAJAK, R SUNNY DPM Unavailable Unavailable MAJAK, R SUNNY DPM Unavailable Unavailable MAJAK, R SUNNY DPM Unavailable Unavailable MAJAK, R SUNNY DPM Unavailable Unavailable MAJAK, R SUNNY DPM Unavailable Unavailable MAJAK, R SUNNY DPM Unavailable Unavailable MAJAK, R SUNNY DPM Unavailable Unavailable MAJAK, R SUNNY DPM Unavailable Unavailable MAJAK, R SUNNY DPM Unavailable Unavailable MAJIQRA, R SUNNY DPM Unavailable Unavailable Arrow RockJessy berry MD Unavailable Unavailable Arrow RockJessy MD Unavailable Unavailable FrantzJessy MD Unavailable Unavailable FrantzJessy MD Unavailable Unavailable FrantzJessy MD Unavailable Unavailable FrantzJessy MD Unavailable Unavailable FrantzJessy MD Unavailable Unavailable FrantzJessy MD Unavailable Unavailable FrantzJessy MD Unavailable Unavailable FrantzJessy MD Unavailable Unavailable Arrow RockJessy MD Unavailable Unavailable FrantzJessy berry MD Unavailable Unavailable FrantzJessy MD Unavailable Unavailable Arrow RockJessy MD Unavailable Unavailable Arrow RockJessy berry MD Unavailable Unavailable FrantzJessy MD Unavailable Unavailable Arrow RockJessy beryr MD Unavailable Unavailable Arrow RockJessy berry MD Unavailable Unavailable FrantzJessy berry MD Unavailable Unavailable FrantzJessy MD Unavailable Unavailable FrantzJessy MD Unavailable Unavailable Arrow RockJessy berry MD Unavailable Unavailable FrantzJessy berry MD Unavailable Unavailable Arrow RockJessy berry MD Unavailable Unavailable FrantzJessy berry MD Unavailable Unavailable Arrow RockJessy berry MD Unavailable Unavailable Arrow RockJessy berry MD Unavailable Unavailable Arrow RockJessy berry MD Unavailable Unavailable FrantzJessy berry MD Unavailable Unavailable Arrow RockJessy berry MD Unavailable Unavailable FrantzJessy berry MD Unavailable Unavailable Arrow RockJessy berry MD Unavailable Unavailable FrantzJessy berry MD Unavailable Unavailable Arrow RockJessy berry MD Unavailable Unavailable Arrow RockJessy MD Unavailable Unavailable FrantzJessy MD Unavailable Unavailable Arrow RockJessy MD Unavailable Unavailable FrantzJessy MD Unavailable Unavailable FrantzJessy MD Unavailable Unavailable FrantzJessy berry MD Unavailable Unavailable FrantzJessy berry MD Unavailable Unavailable FrantzJessy MD Unavailable Unavailable FrantzJessy MD Unavailable Unavailable Arrow RockJessy MD Unavailable Unavailable FrantzJessy MD Unavailable Unavailable Arrow Rock, Jessy Storm DAVIS Unavailable Unavailable Arrow Rock, Jessy Storm DAVIS Unavailable Unavailable Arrow Rock, Jessy Storm DAVIS Unavailable Unavailable Frantz, F Storm DAVIS Unavailable Unavailable Frantz, F Storm MD Unavailable Unavailable Arrow Rock, F Inman MD Unavailable Unavailable Frantz, Jessy Inman MD Unavailable Unavailable Arrow Rock, F Inman MD Unavailable Unavailable Frantz, Jessy Inman MD Unavailable Unavailable Frantz, F Inman MD Unavailable Unavailable Arrow Rock, F Inman MD Unavailable Unavailable Arrow Rock, Jessy Inman MD Unavailable Unavailable Arrow Rock, Jessy Inman MD Unavailable Unavailable Frantz, Jessy Inman MD Unavailable Unavailable Arrow Rock, F Inman MD Unavailable Unavailable Frantz, Jessy Inman MD Unavailable Unavailable Arrow Rock, F Inman MD Unavailable Unavailable Frantz, F Inman MD Unavailable Unavailable Frantz, F Inman MD Unavailable Unavailable Frantz, F Inman MD Unavailable Unavailable Frantz, Jessy Inman MD Unavailable Unavailable Frantz, F Inman MD Unavailable Unavailable Frantz, Jessy Inman MD Unavailable Unavailable Frantz, Jessy Inman MD Unavailable Unavailable Frantz, Jessy Storm MD Unavailable Unavailable Frantz, Jessy Storm MD Unavailable Unavailable Arrow Rock, Jessy Inman MD Unavailable Unavailable Frantz, Jessy Inman MD Unavailable Unavailable Frantz, Jessy Inman MD Unavailable Unavailable Arrow Rock, Jessy Inman MD Unavailable Unavailable Frantz, F Inman MD Unavailable Unavailable Frantz, Jessy Inman MD Unavailable Unavailable Arrow Rock, F Inman MD Unavailable Unavailable Frantz, Jessy Storm MD Unavailable Unavailable Arrow Rock, Jessy Inman MD Unavailable Unavailable Frantz, Jessy Inman MD Unavailable Unavailable Frantz, Jessy Inman MD Unavailable Unavailable Arrow Rock, Jessy Inman MD Unavailable Unavailable Arrow Rock, Jessy Storm MD Unavailable Unavailable Frantz, Jessy Storm DAVIS Unavailable Unavailable Frantz, Jessy Storm DAVIS Unavailable Unavailable Re-disclosure Warning The records that you are about to access may contain information from federally-assisted alcohol or drug abuse programs. If such information is present, then the following federally mandated warning applies: This information has been disclosed to you from records protected by federal confidentiality rules (42 CFR part 2). The federal rules prohibit you from making any further disclosure of this information unless further disclosure is expressly permitted by the written consent of the person to whom it pertains or as otherwise permitted by 42 CFR part 2. A general authorization for the release of medical or other information is NOT sufficient for this purpose. The Federal rules restrict any use of the information to criminally investigate or prosecute any alcohol or drug abuse patient.The records that you are about to access may contain highly sensitive health information, the redisclosure of which is protected by Article 27-F of the [place] Public Health law. If you continue you may have access to information: Regarding HIV / AIDS; Provided by facilities licensed or operated by the [place] [facility] Office of Mental Health; or Provided by the [place] [facility] Office for People With Developmental Disabilities. If such information is present, then the following [place] [facility] mandated warning applies: This information has been disclosed to you from confidential records which are protected by state law. State law prohibits you from making any further disclosure of this information without the specific written consent of the person to whom it pertains, or as otherwise permitted by law. Any unauthorized further disclosure in violation of state law may result in a fine or group home sentence or both. A general authorization for the release of medical or other information is NOT sufficient authorization for further disc losure. Family History Family Member Name Family Member Gender Family Member Status Date o f Status Description Data Source(s) Unknown Male Problem [facility] ([facility] () Encounters Encounter Providers Location Date Indications Data Source(s ) Outpatient TARUN-NANDA 05/28/2020 11:23:05 PM [facility] Outpatient Referrer: Storm TURPIN 09/2019 12:00:00 AM [facility] Outpatient<td ID="encounterTypeDescripti onID0">1 Year Follow-Up</td><td>Claus Otto MD, FACS</td><td>Claus Otto MD [facility]</td><td>04/03/2020</td><td>12:16PM</td><td>2:01PM</td><td><content ID="encounterDiagnosisID0-0">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</content>, <content ID="encounterDiagnosisID0-1">Cataract Senile Nuclear</content>, <content ID="encounterDiagnosisID0-2">Cataract Senile Posterior Subcapsular Polar</content>, <content ID="encounterDiagnosisID0- 3">Assessment of Taking Medication For Diabetes Long-term Use of Insul in</content>, <content ID="encounterDiagnosisID0-4">Dry Eye Syndrome Both Eyes</content>, <content ID="encounterDiagnosisID0-5">Essential Hypertension</content>, <content ID="encounterDiagnosisID0-6">Retinopathy Hypertensive Both Eyes</content>, <content ID="encounterDiagnosisID0-7">Cataract Senile Cortical Left</content></td> Attender: Claus Lowery MD, FACS Cluas Otto MD [facility] 04/03/2020 12:16:00 PM EDT - 04/03/2020 02:01:00 PM ED T Essential HypertensionCataract Senile NuclearCataract Senile Cortical LeftAssessment of Taking Medication For Diabetes Long-term Use of Insulin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Retinopathy Hypertensive Both EyesDry Eye Syndrome Both EyesCataract Senile Posterior Subcapsular Polar MOOSE (Claus Lowery MD [facility]) Essential Hypertension 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 Assessment of Taking Medication For Diab etes Long-term Use of Insulin Type 2 Diab W/ Diab Retinopathy Mild Non prolif Without Macular Edema Retinopathy Hypertensive Both Eyes Dry Eye Syndrome Both Eyes Cataract Senile Posterior Subcapsular Po lar Office Visit Attender: SUNNY MELARA [facility] Office 02/18 10:30:00 AM EDT [facility] Outpatient Attender: Storm Navarro 0 02/14/2020 08:40:00 AM EDT [facility] ([facility] ) Outpatient Attender: Storm Navarro 0 09/15/2019 08:00:00 AM EST [facility] ([facility] ) Outpatient 09/13/2019 10:06:00 AM EST [facility] Outpatient Attender: Storm Navarro 0 08/05/2019 08:00:00 AM EST [facility] ([facility] ) Immunizations Vaccine Date Status Description Data Source(s) Influenza, injectable, MDCK, preservative free, cindy valent 05/23/2020 08:59:00 AM EST completed [facility] Medications Medication Brand Name Start Date Product Form Dose Route Admi nistrative Instructions Pharmacy Instructions Status Indications Reaction Description Data Source(s) Administration Of Flu Vaccine 05/23/2020 12:00:00 AM EST completed [facility]) Medication administered onsite Pentips Pen Needle 4mm 01/11/2020 12:00:00 AM EDT completed [facility] ([facility]) Insurance Providers Payer name Policy type / Coverage type Policy ID Covered democrat ID Covered democrat's relationship to dodge Policy Dodge Plan Information EMEDNY [id number] SP [id number] MEDICARE [id number] SP [id number] MEDICARE [id number] Daphney [id number] Medicare Part B [facility] Other 0 Se lf 0 MEDICAID [id number] SP [id number] MEDICAID M [id number] S [id number] MEDICARE C [id number] S [id number] Medicaid Medigap Part B [id number] Self [id number] Medicare Natl Govt Servic Medicare Primary [id number] Self [id number] Ghi FHP Medigap Part B [id number] Self [id number] Medicare Dme Medigap Part B [id number] Self [id number] Medicaid Medicaid [id number] Self [id number] Medicare Medicare Primary [id number] Self 7 [id number] MEDICARE [id number] SP [id number] A Medicaid Medigap Part B [id number] Self [id number] Medicare Natl Govt Servic Medicare Primary [id number] Self [id number] Medicare Dme Medigap Part B [id number] Self [id number] Medicaid Medicaid [id number] Self [id number] Medicare Medicare Primary [id number] Self [id number] Medicare Dme Medigap Part B [id number] Self [id number] Medicaid Medicaid [id number] Self [id number] Medicare Medicare Primary [id number] Self 7 [id number] Medicaid Medigap Part B [id number] Self [id number] Medicare Natl Govt Servic Medicare Primary [id number] Self [id number] Medicaid Medigap Part B [id number] Self [id number] Medicare Natl Govt Servic Medicare Primary [id number] Self [id number] Medicare Dme Medigap Part B [id number] Self [id number] Medicaid Medicaid [id number] Self [id number] Medicare Medicare Primary [id number] Self 7 [id number] Medicare Dme Medigap Part B [id number] Self [id number] Medicaid Medicaid [id number] Self [id number] Medicare Medicare Primary [id number] Self 7 [id number] Medicare Dme Medigap Part B [id number] Self [id number] Medicaid Medicaid [id number] Self [id number] Medicare Medicare Primary [id number] Self 7 [id number] Medicare Dme Medigap Part B [id number] Self [id number] Medicaid Medicaid [id number] Self [id number] Medicare Medicare Primary [id number] Self 7 [id number] Medicare Dme Medigap Part B [id number] Self 0 [id number] Medicaid Medicaid [id number] Self [id number] Medicare Medicare Primary [id number] Self 06 [id number] Medicare Dme Medigap Part B [id number] Self 0 [id number] Medicaid Medicaid [id number] Self [id number] Medicare Medicare Primary [id number] Self 06 [id number] Medicaid Medigap Part B [id number] Self [id number] Medicare Natl Govt Servic Medicare Primary [id number] Self [id number] Medicaid Medigap Part B [id number] Self [id number] Medicare Natl Govt Servic Medicare Primary [id number] Self [id number] Medicaid Medicaid [id number] Self [id number] Medicare Medicare Primary [id number] Self 06 [id number] Medicaid Medicaid [id number] Self [id number] Medicare Medicare Primary [id number] Self 06 [id number] Medicaid Medicaid [id number] Self [id number] Medicare Medicare Primary [id number] Self 06 [id number] Medicaid Medigap Part B [id number] Self [id number] Medicare Natl Govt Servic Medicare Primary [id number] Self [id number] Medicare Natl Govt Servic Medicare Primary [id number] Self [id number] Ghi FHP Medigap Part B Family Health Plus Self Family Health Plus Medicare Natl Govt Servic Medicare Primary Self Problems, Conditions, and Diagnoses Code Display Name Description Problem Type Effective Dates Data Source(s) 26253037 Mitral valve disorder Mitral valve disorder Problem 02/14/2020 12:00:00 AM EDT [facility] ([facility]) [id number] Aortic valve disorder Aortic valve disorder Problem 02/14/2020 12:00:00 AM EDT [facility] ([facility]) Surgeries/Procedures Procedure Description Date Indications Data Source(s) PARING/CUTTING BENIGN HYPERKERATOTIC LESION 2-4 2020 12:00:00 AM EST [facility] ([facility] DEBRIDEMENT NAIL ANY METHOD 08/01/2020 12:00:00 AM EST [facility] PARING/CUTTING BENIGN HYPERKERATOTIC LESION 2-4 2019 12:00:00 AM EST [facility] ([facility] DEBRIDEMENT NAIL ANY METHOD > 05/23/2020 12:00:00 AM EST [facility] Diabetic Foot Exam 05/23/2020 12:00:00 AM EST [facility] ([facility]) Diabetic Retinal Eye Exam 04/03/2020 12:00:00 AM EDT [facility] ([facility]) Surgical / procedural history : Appendec sarahi, Heart Catheterization- 2 stents 1999 and 2007 Surgical / procedural history : Appendec sarahi, Heart Catheterization- 2 stents 1999 and 2008 04/03/2020 12:00:00 AM EDT [facility]OO[facility] (Claus Lowery MD [facility]) Intermediate Eye Exam Established Patient Intermediate Eye Exam Established Patient 04/03/2020 12:00:00 AM EDT [facility] (Nadeem Lowery MD [facility]) PARING/CUTTING BENIGN HYPERKERATOTIC LESION 2-4 2019 12:00:00 AM EDT [facility] ([facility] DEBRIDEMENT NAIL ANY METHOD 6/> 03/14/2020 12:00:00 AM EDT [facility] ([facility] Results ID Date Data Source [id number] 05/28/2020 11:14:48 PM EST [facility] Name Value Range Interpretation Code Description Data Edelmira rce(s) Supporting Document(s) &PDF [facility] IIQNZw3rKqMQJrJg86/ORWamDBRgd4WvHVntIOo1WEbgKUSfP5JevAbjKVjHT89EHmZfB2zWSMSpLxXg yKE [file] Bc5IFt+rA71dfplj7Jl0Q1edyfpvhc7CQfhn5mV9y5/Jz/sales order clerk+EPsWQZmMY3s5nTm3EDiaghPpHJ97xe4 [file] ICAgICAgICAgICAgICAgICAgICAgICAgICAgICAgICAgICAgICAgICAgICAgICAgICAgICAgICAgICAg ICAgICAgICAgDQogICAgICAgICAgICAgICAgICAgIC AgICAgICAgICAgICAgICAgICAgICAgICAgICAgICAgICAgICAgICAgICAgICAgICAgICAgICAgICAgIC AgICAgICAgICAgICAgICAgICAgDQogICAgICAgICAgICAgICAgICAgICAgICAgICAgICAgICAgICAgIC AgICAgICAgICAgICAgICAgICAgICAgICAgICAgICAg ICAgICAgICAgICAgICAgICAgICAgICAgICAgICAgDQogICAgICAgICAgICAgICAgICAgICAgICAgICAg ICAgICAgICAgICAgICAgICAgICAgICAgICAgICAgICAgICAgICAgICAgICAgICAgICAgICAgICAgICAg ICAgICAgICAgICAgDQogICAgICAgICAgICAgICAgIC AgICAgICAgICAgICAgICAgICAgICAgICAgICAgICAgICAgICAgICAgICAgICAgICAgICAgICAgICAgIC AgICAgICAgICAgICAgICAgICAgICAgDQogICAgICAgICAgICAgICAgICAgICAgICAgICAgICAgICAgIC AgICAgICAgICAgICAgICAgICAgICAgICAgICAgICAg ICAgICAgICAgICAgICAgICAgICAgICAgICAgICAgICAgDQogICAgICAgICAgICAgICAgICAgICAgICAg ICAgICAgICAgICAgICAgICAgICAgICAgICAgICAgICAgICAgICAgICAgICAgICAgICAgICAgICAgICAg ICAgICAgICAgICAgICAgDQogICAgICAgICAgICAgIC AgICAgICAgICAgICAgICAgICAgICAgICAgICAgICAgICAgICAgICAgICAgICAgICAgICAgICAgICAgIC AgICAgICAgICAgICAgICAgICAgICAgICAgDQogICAgICAgICAgICAgICAgICAgICAgICAgICAgICAgIC AgICAgICAgICAgICAgICAgICAgICAgICAgICAgICAg ICAgICAgICAgICAgICAgICAgICAgICAgICAgICAgICAgICAgDQogICAgICAgICAgICAgICAgICAgICAg ICAgICAgICAgICAgICAgICAgICAgICAgICAgICAgICAgICAgICAgICAgICAgICAgICAgICAgICAgICAg DTUrOGMrFIJdULCsYDTcBRBjPSx7V4huEDVhMMDlEW 9kNSp6Gl3+HOnMQnQxZDZ9xySivN3NTB9ib6HsGMtwUVLht9PuIAn2PX2UHNIkJMomHC6BWIsgah9BIZ WaIHJrcGXNx8mpLnFmWBS6SGFwRvgfBC1EDZBvN0huhsLkFFRsHRDTRTntUKFJROchRSQSUD9OAgQsL3 TnuQ35ACVPVd3+XSfmvoPdOuzGOoFqJHGvk9KzTDn1 VF2QXQPaDCvzPO7ZWFHmsB9pAFnmIY8AKuP4OMIjTEHNIrZdC16ooMAfVFe7Q4KeQsOxYEGqDajoHETr PDwvTmFtZXMgWyBdDQogID4+ID4+SPzbVR6IBHxomoTlWHYhUv1HHXXuIGM9PRFvnFFtZTSiDCZUIWum VK9BuNGgIXY0xX9zZPqhRFKxARZfJ8yNHxApqMvzGH 51bGwgbnVsbCBdDQo+Kw9RVF1dp9GeYVv9dbLkMQkdYCCwMTzuBVYkQZViXTRyKVJ7CJQ7DZQSWcZhIJ CxJVGzPNhsAVRiSKLjyt8MXQRhIMC0YEi1BZLbUVXnLHHwFElyZDDhVJoeXshrJAQsBDWfCA4MGdKnXY BsFJFgMQZfFPMcMAKawt3IGJOtPBRqWlJwMbHsKRUt APHpIFwuQNZjCJYfHOO3CQGsYQStCM2FPpChUYJqCQQxXFHhARCyRWWmpe1UADMtRLByFeP3NVDtBZJg VTPaACgrGUVhXSJ5WeSqZQInGOBgUS8GMeGdKMXhEUd2JzbxPRVkUQRejh5NMBIrYWJyVWcfLrSeKEIs SFPkDWmuQYQoLHL3DSM9XHKbVAYdYG0FJzYeZQNsJK giXTqiNVYwDWFcbe2ZPHYfUJFlDXE1VpWuJBPlDDJhKUipLPQbWGNpQeX5FLTeEBBbBL4ODfOlIETzPC L9SANrVFQaSUBqyj4IVLNiRYAnJTTaXjXdJFPaVJUwURdyAGQfXJV0FkJ5SXPnPVMnOH3EKoWhCINiAB T1BRDpKAIhSTItaa9JQQGtXIFbScE3SYAxNWIoRQIe FSejJGQgRMG6GiB2HZBbRXDdKE2QMqGkAWRcJCwnMlBfFFEcJBYvwp2JOWYuFGTiMqP1LCYzALDbCPHf UAmrLLCbSPT3SpC2DFHvOYVnYV7WAgKmLMChSgLlNIEeEQWtGZTdaf3ZDAVlFMPhQvFxQMTsGSOnGAGj JZoyJQWrIGM2SgHiKRPdENCdWV9OKuJtYJDwYxjqOI trPGQhGMPhoy8CWJByCQBeDwy4KZAjCVZrNOGgHOrxJYUrAFM6MMKxBICuNBAbDA9KPuYzQKNvWqe3AJ RqEOUlIGDxgk8XYABpMWQ4PMDlOOBhQZJaPRAvZDmuCRFbCGY2MiClCIFqREMkZC9URlEjZMUbSBDyWp siIJFgVKJrlt5ZQFOrPNP7AXVeHQZjHAGpWSBrOZgz WCZfEMT2YOZwXBUwZBEqAP0FIxFvEDWeHQm8OhQmRJYjFQWyam1GRWVwUAD3FZPlOXQdDXErBCXmEXzk KTJaKNE4MhHdLDApCAYeIK9HLhWuPUHfDeg6RdUuGVQsIMXnbi9OYRGzXWE5ZIQ0NWFrIFMaMENnNMnh XSTjGZoqYSazELDnMYNtWK3OEnRlMCrmFSANGdp5WX jdB7m2IDS1Uu5AD1Rhi9YwPXEfPNJURLarNG2piwKvRJJdMa4DT6nDElntYEWzZhGmP8X0F8D6QPWdMX w0SzC7O8E8HFgvTEWpZJ8eDGEgOpQjRYN4WNdbFAs7MBVoABeoYFZcQEB4EaVsL3O0UeFsBI6EWr3KAn H8QRC8pAFsLp7ROsVsPpyLInGlXT3FBSi= ID Date Data Source [id number] 02/13/2020 07:34:00 AM EDT [facility] ([facility]) Name Value Range Interpretation Code Description Data Edelmira rce(s) Supporting Document(s) Cholesterol in HDL [Mass/volume] in Serum or Plasma 40 mg/dL 35-60 [facility] ([facility]) Triglyceride [Mass/volume] in Serum or Plasma 128 mg/dL 30-150 [facility] ([facility]) Cholesterol [Mass/volume] in Serum or Plasma 141 mg/dL 131-200 [facility] ([facility]) Cholesterol in LDL [Mass/volume] in Serum or Plasma by calcu lation 75 CALC 50-159 [facility] ([facility]) ID Date Data Source [id number] 02/13/2020 07:34:00 AM EDT [facility] ([facility]) Name Value Range Interpretation Code Description Data Edelmira rce(s) Supporting Document(s) Sodium [Moles/volume] in Serum or Plasma 146 meq/L 136-145 [facility] ([facility]) Creatinine 1.2 mg/dL 0.6-1.3 [facility] Glucose [Mass/volume] in Serum or Plasma 125 mg/dL 74-99 [facility] ([facility]) 100-125 mg/dL PRE-DIABETES/FASTING >126 mg/dL DIABETES/FASTING Urea nitrogen [Mass/volume] in Serum or Plasma 23 mg/dL 7-18 [facility] ([facility]) Chloride [Moles/volume] in Serum or Plasma 109 meq/L 98-107 [facility] ([facility]) Potassium [Moles/volume] in Serum or Plasma 4.2 meq/L 3.5-5.1 [facility] ([facility]) Carbon dioxide, total [Moles/volume] in Serum or Plasma 24 meq/L 21 -32 [facility] ([facility]) Alkaline phosphatase isoenzyme [Units/volume] in Serum or Pl asma 80 mg/dL 46-116 [facility] ([facility]) Calcium [Mass/volume] in Serum or Plasma 8.9 mg/dL 8.5-10.1 [facility] ([facility]) Total Bilirubin 0.3 mg/dL 0.2-1.0 [facility] ([facility]) Aspartate aminotransferase [Enzymatic activity/volume] in Serum or Plasma 23 U/L 15-37 [facility] ([facility] ) Proteinase 3 Ab [Units/volume] in Serum 7.1 g/dL 6.4-8.2 [facility] ([facility]) Albumin [Mass/volume] in Serum or Plasma 3.5 g/dL 3.4-5.0 [facility] ([facility]) Alanine aminotransferase [Enzymatic activity/volume] in Seru m or Plasma 50 U/L 12-78 [facility] Glomerular filtration rate/1.73 sq M pre dicted among non-blacks [Volume Rate/Area] in Serum or Plasma by Creatinine-based formula (MDRD) 60 mL/min [facility] A/G Ratio 0.97 CALC 1.00-1.90 [facility] Glomerular filtration rate/1.73 sq M pre dicted among blacks [Volume Rate/Area] in Serum or Plasma by Creatinine-based formula (MDRD) Laboratory test result [facility] <content>CHRONIC KIDNEY DISEASE STAGING PER NKF</content>
<content></content>
<content>STAGE I & II GFR >= 60 NORMAL TO MILDLY DECREASED</content>
<content>STAGE III GFR 30-59 MODERATELY DECREASED</content>
<content>STAGE IV GFR 15-29 SEVERELY DECREASED</content>
<content>STAGE V GFR <15 VERY LITTLE GFR LEFT</content>
<content>ESRD GFR <15 ON INSURANCE HEALTHCARE CONSULTANT</content>
<content></content> ID Date Data Source [id number] 02/13/2020 07:34:00 AM EDT [facility] Name Value Range Interpretation Code Description Data Edelmira rce(s) Supporting Document(s) Hemoglobin A1c/Hemoglobin.total in Blood 7.4 g/dL 4.8-5.6 [facility] ([facility]) Lab Result Notes: Pre-Diabetes 5.7 - 6.4 % Diabetes = or > 6.5% Glucose mean value [Mass/volume] in Blood Estimated fr om glycated hemoglobin 166 mg/dL 60-110 [facility] ) ID Date Data Source [id number] 02/13/2020 07:34:00 AM EDT [facility] Name Value Range Interpretation Code Description Data Edelmira rce(s) Supporting Document(s) Leukocytes [#/volume] in Blood by Automated count 7.1 x10*3/UL 4.1-10 .9 [facility] Hematocrit [Volume Fraction] of Blood by Automated count 40.2 % 3 7.0-51.0 [facility] ([facility] Hemoglobin [Mass/volume] in Blood 13.9 g/dL 12.0-18.0 [facility] Erythrocytes [#/volume] in Blood by Automated count 4.38 x10*6/UL 4.2 0-6.30 [facility] ([facility]) MCH 31.9 pg 26.0-32.0 [facility] ([facility]) Erythrocyte distribution width [Ratio] by Automated count 13.2 % 11.6-13.7 [facility] ([facility]) MCV 91.8 fL 80.0-97.0 [facility]) MCHC 34.7 g/dL 31.0-38.0 [facility] ([facility]) Platelets [#/volume] in Blood by Automated count 153 x10*3/UL 140-440 [facility] ([facility] MPV 9.7 FL 7.8-11.0 [facility] ([facility]) Lymph % 20.9 % 10.0-58.5 [facility] Neut % 72.5 % 37.0-92.0 [facility] ([facility]) Mid # 0.6 x10*3/UL 0.1-0.6 [facility] ([facility]) Lymph # 1.4 x10*3/UL 0.6-4.1 [facility] ([facility]) Mid % 6.6 % 1.7-9.3 [facility] ([facility]) Neut # 5.1 x10*3/UL 2.0-7.8 [facility] ([facility]) ID Date Data Source [id number] 09/04/2019 10:11:00 PM EST [facility] ([facility]) Name Value Range Interpretation Code Description Data Edelmira rce(s) Supporting Document(s) Influenza A Amplification Laboratory test result [facility] ([facility]) Influenza B [facility]ification [facility] Negative results do not preclude influen za or RSV virus infection and should not be used as the sole basis for treatment or other patient management decisions. ID Date Data Source [id number] 09/04/2019 10:09:00 PM EST [facility] ([facility]) Name Value Range Interpretation Code Description Data Edelmira rce(s) Supporting Document(s) White Blood Count 8.5 10 4.0-10.0 [facility] Red Blood Count 4.68 10 4.30-6.10 [facility] ([facility]) Hematocrit 44.7 % 42.0-52.0 [facility] Hemoglobin 15.2 g/dL 13.5-17.5 [facility] Mean Corpuscular HGB Conc 34.0 g/dL 32.0-36.5 [facility] NT ([facility]) Mean Corpuscular Volume 95.5 fl 80.0-96.0 [facility] Mean Corpuscular Hemoglobin 32.5 pg 27.0-33.0 [facility] ([facility]) Neutrophils % 70.3 % 36.0-66.0 [facility] ([facility]) Red Cell Distribution Width 13.0 % 11.5-14.5 [facility] ([facility]) Platelet Count, Automated 154 10 150-450 [facility] NT ([facility]) [place] % 9.9 % 0.0-5.0 [facility] ([facility]) Eos % 1.5 % 0.0-3.0 [facility] ([facility]) Lymph % 17.3 % 24.0-44.0 [facility] ([facility]) Baso % 0.6 % 0.0-1.0 [facility] ([facility]) Nucleated Red Blood Cell % 0.0 % 0-0 [facility] ([facility]) Immature Granulocyte % 0.4 % 0-3.0 [facility] ([facility]) Eos # 0.1 10 0.0-0.5 [facility] ([facility]) [place] # 0.8 10 0.0-0.8 [facility] ([facility]) Lymph # 1.5 10 1.5-5.0 [facility] ([facility]) Neutrophils # 6.0 10 1.5-8.5 [facility] ([facility]) Baso # 0.1 10 0.0-0.2 [facility] ([facility]) ID Date Data Source [id number] 09/04/2019 10:08:00 PM EST [facility] ([facility]) Name Value Range Interpretation Code Description Data Edelmira rce(s) Supporting Document(s) Laboratory test finding (navigational concept) 181 mg/dL 70-105 [facility] ([facility]) Laboratory test finding (navigational concept) 46.0 % 38.0-51.0 [facility] ([facility]) Laboratory test finding (navigational concept) 137 meq/L 136-145 [facility] ([facility]) Laboratory test finding (navigational concept) 4.5 mg/dL 4.5-5.3 [facility] ([facility]) Laboratory test finding (navigational concept) 3.9 meq/L 3.5-5.1 [facility] ([facility]) Laboratory test finding (navigational concept) 102 meq/L 98-109 [facility] ([facility]) Laboratory test finding (navigational concept) 23.0 MM/L 23.0-27.0 [facility] Laboratory test finding (navigational concept) 12 mg/dL 8-26 [facility] ([facility]) Laboratory test finding (navigational concept) 1.1 mg/dL 0.6-1.3 [facility] ([facility]) ID Date Data Source [id number] 09/04/2019 10:07:00 PM EST [facility] ([facility]) Name Value Range Interpretation Code Description Data Edelmira rce(s) Supporting Document(s) Bedside Glucose 175 mg/dL 83-110 [facility] ([facility]) ID Date Data Source [id number] 08/05/2019 07:48:00 AM EST [facility] ([facility]) Name Value Range Interpretation Code Description Data Edelmira rce(s) Supporting Document(s) Leukocytes [#/volume] in Blood by Automated count 6.4 x10*3/UL 4.1-10 .9 [facility] ([facility]) Erythrocytes [#/volume] in Blood by Automated count 4.48 x10*6/UL 4.2 0-6.30 [facility] ([facility] Hemoglobin [Mass/volume] in Blood 14.2 g/dL 12.0-18.0 [facility] ([facility]) MCH 31.6 pg 26.0-32.0 [facility] ([facility]) MCV 93.1 fL 80.0-97.0 [facility] ([facility]) Hematocrit [Volume Fraction] of Blood by Automated count 41.7 % 3 7.0-51.0 [facility] ([facility]) MPV 9.7 FL 7.8-11.0 [facility] ([facility]) MCHC 34.0 g/dL 31.0-38.0 [facility] ([facility]) Erythrocyte distribution width [Ratio] by Automated count 13.1 % 11.6-13.7 [facility] ([facility]) Platelets [#/volume] in Blood by Automated count 147 x10*3/UL 140-440 [facility] ([facility]) Lymph % 21.1 % 10.0-58.5 [facility] ([facility]) Mid % 6.1 % 1.7-9.3 [facility] ([facility]) Lymph # 1.3 x10*3/UL 0.6-4.1 [facility] ([facility]) Neut % 72.8 % 37.0-92.0 [facility] ([facility]) Neut # 4.6 x10*3/UL 2.0-7.8 [facility] ([facility]) Mid # 0.5 x10*3/UL 0.1-0.6 [facility] ([facility]) ID Date Data Source [id number] 08/05/2019 07:48:00 AM EST [facility] ([facility]) Name Value Range Interpretation Code Description Data Edelmira rce(s) Supporting Document(s) Hemoglobin A1c/Hemoglobin.total in Blood 8.3 g/dL 4.8-5.6 [facility] ([facility]) Lab Result Notes: Pre-Diabetes 5.7 - 6.4 % Diabetes = or > 6.5% Glucose mean value [Mass/volume] in Blood Estimated fr om glycated hemoglobin 192 mg/dL 60-110 [facility] ([facility] ) ID Date Data Source [id number] 08/05/2019 07:48:00 AM EST [facility] ([facility] Name Value Range Interpretation Code Description Data Edelmira rce(s) Supporting Document(s) Glucose [Mass/volume] in Serum or Plasma 139 mg/dL 74-99 [facility] ([facility]) 100-125 mg/dL PRE-DIABETES/FASTING >126 mg/dL DIABETES/FASTING Creatinine 1.2 mg/dL 0.6-1.3 [facility] ([facility]) Urea nitrogen [Mass/volume] in Serum or Plasma 16 mg/dL 7-18 [facility] ([facility]) Sodium [Moles/volume] in Serum or Plasma 141 meq/L 136-145 [facility] Potassium [Moles/volume] in Serum or Plasma 4.0 meq/L 3.5-5.1 [facility] ([facility]) Chloride [Moles/volume] in Serum or Plasma 105 meq/L 98-107 [facility] ([facility]) Carbon dioxide, total [Moles/volume] in Serum or Plasma 28 meq/L 21 -32 [facility] ([facility]) Calcium [Mass/volume] in Serum or Plasma 8.9 mg/dL 8.5-10.1 [facility] ([facility]) Alkaline phosphatase isoenzyme [Units/volume] in Serum or Pl asma 87 mg/dL 46-116 [facility] ([facility]) Total Bilirubin 0.5 mg/dL 0.2-1.0 [facility] ([facility]) Albumin [Mass/volume] in Serum or Plasma 3.7 g/dL 3.4-5.0 [facility] ([facility]) Aspartate aminotransferase [Enzymatic activity/volume] in Serum or Plasma 40 U/L 15-37 [facility] ([facility] ) Alanine aminotransferase [Enzymatic activity/volume] in Seru m or Plasma 71 U/L 12-78 [facility] ([facility]) A/G Ratio 1.06 CALC 1.00-1.90 [facility]) Proteinase 3 Ab [Units/volume] in Serum 7.2 g/dL 6.4-8.2 [facility] ([facility]) Glomerular filtration rate/1.73 sq M pre dicted among non-blacks [Volume Rate/Area] in Serum or Plasma by Creatinine-based formula (MDRD) 60 mL/min [facility] ([facility]) Glomerular filtration rate/1.73 sq M pre dicted among blacks [Volume Rate/Area] in Serum or Plasma by Creatinine-based formula (MDRD) >= 60 mL/min [facility] ([facility] <content>CHRONIC KIDNEY DISEASE STAGING PER NKF</content>
<content></content>
<content>STAGE I & II GFR >= 60 NORMAL TO MILDLY DECREASED</content>
<content>STAGE III GFR 30-59 MODERATELY DECREASED</content>
<content>STAGE IV GFR 15-29 SEVERELY DECREASED</content>
<content>STAGE V GFR <15 VERY LITTLE GFR LEFT</content>
<content>ESRD GFR <15 ON INSURANCE HEALTHCARE CONSULTANT</content>
<content></content> ID Date Data Source [id number] 08/05/2019 07:48:00 AM EST [facility] ([facility]) Name Value Range Interpretation Code Description Data Edelmira rce(s) Supporting Document(s) Triglyceride [Mass/volume] in Serum or Plasma 138 mg/dL 30-150 [facility] ([facility]) Cholesterol [Mass/volume] in Serum or Plasma 146 mg/dL 131-200 [facility] ([facility]) Cholesterol in LDL [Mass/volume] in Serum or Plasma by calcu lation 78 CALC 50-159 [facility] ([facility]) Cholesterol in HDL [Mass/volume] in Serum or Plasma 40 mg/dL 35-60 [facility] ([facility]) ID Date Data Source [id number] 08/05/2019 07:47:00 AM EST [facility] ([facility]) Name Value Range Interpretation Code Description Data Edelmira rce(s) Supporting Document(s) Thyrotropin [Units/volume] in Serum or Plasma by Detec tion limit <= 0.05 mIU/L 1.17 uIU/mL 0.36-3.74 [facility] ([facility] ) ID Date Data Source [id number] 08/05/2019 07:47:00 AM EST [facility] ([facility]) Name Value Range Interpretation Code Description Data Edelmira rce(s) Supporting Document(s) Vitamin B12 Level 406 pg/mL [facility] ([facility]) VITAMIN B12 NORMAL RANGE NORMAL 247 - 911 PG/ML INDETERMINATE 211 - 246 PG/ML DEFICIENT LESS THAN 211 PG/ML Folate 11.6 ng/mL [facility] FOLATE NORMAL RANGE NORMAL GREATER THAN 5.4 NG/ML INDETERMINATE 3.4-5.4 NG/ML DEFICIENT LESS THAN 3.4 NG/ML Procedure Social History Code Duration Value Status Description Data Source(s ) Smoking 04/03/2020 03:15:04 PM EDT Never smoked tobacco (findi ng) completed Never smoked tobacco (finding) [place] (Claus Lowery MD [facility]) Vital Signs ID Date Data Source [id number] Name Value Range Interpretation Code Description Data Source(s) Body mass index (BMI) [Ratio] 39.5 kg/m2 39.5 k g/m2 [facility] Heart rate 72 /min 72 /min [facility] ([facility] Diastolic blood pressure 88 mm[Hg] 88 mm[Hg] [facility] ([facility] Systolic blood pressure 124 mm[Hg] 124 mm[Hg] [facility] ([facility] Body weight 245.00 [lb_av] 245.00 [lb_av] [facility] T ([facility] Body height 66 [in_i] 66 [in_i] [facility] ([facility] 5'6" Body mass index (BMI) [Ratio] 36.6 kg/m2 36.6 k g/m2 [facility] ([facility]) Body weight 237.00 [lb_av] 237.00 [lb_av] [facility] T ([facility]) Body height 67.50 [in_i] 67.50 [in_i] [facility] ([facility] 5'7.50" Heart rate 60 /min 60 /min [facility] ([facility]) Diastolic blood pressure 52 mm[Hg] 52 mm[Hg] [facility] ([facility]) Systolic blood pressure 116 mm[Hg] 116 mm[Hg] [facility] ([facility]) Body mass index (BMI) [Ratio] 36.9 kg/m2 36.9 k g/m2 [facility] ([facility]) Body weight 239.00 [lb_av] 239.00 [lb_av] [facility] T ([facility]) Body height 67.50 [in_i] 67.50 [in_i] [facility] 5'7.50" Heart rate 80 /min 80 /min [facility] Diastolic blood pressure 78 mm[Hg] 78 mm[Hg] ANNY ([facility]) Systolic blood pressure 130 mm[Hg] 130 mm[Hg] [facility] ([facility]) Body mass index (BMI) [Ratio] 37.6 kg/m2 37.6 k g/m2 [facility] ([facility]) Body weight 243.38 [lb_av] 243.38 [lb_av] [facility] T ([facility]) Body height 67.50 [in_i] 67.50 [in_i] [facility]) 5'7.50" Diastolic blood pressure 58 mm[Hg] 58 mm[Hg] ANNY ([facility]) Systolic blood pressure 126 mm[Hg] 126 mm[Hg] [facility] ([facility])
[2020-09-04 14:46] LABS: ALBUMIN 3.5 GM/DL (3.2-5.2); ALT/SGPT 48 U/L (12-78); BILIRUBIN,DIRECT < 0.1 MG/DL (0.0-0.2); BILIRUBIN,TOTAL 0.2 MG/DL (0.2-1.0); BLOOD UREA NITROGEN 20 MG/DL (7-18); CALCIUM LEVEL 9.2 MG/DL (8.8-10.2); CARBON DIOXIDE LEVEL 25 MEQ/L (21-32); CHLORIDE LEVEL 109 MEQ/L (98-107); CK-MB VALUE MASS 1.4 NG/ML (<3.6); CPK CREATINE PHOSPHOKINASE 51 U/L (39-308); CREATININE FOR GFR 1.03 MG/DL (0.70-1.30); GLOMERULAR FILTRATION RATE > 60.0 (>42); GLUCOSE, FASTING 126 MG/DL (70-100); MB/CK RELATIVE INDEX 2.75 (< OR =4); POTASSIUM SERUM 4.1 MEQ/L (3.5-5.1); SODIUM LEVEL 143 MEQ/L (136-145); TROPONIN I < 0.02 NG/ML (< 0.10)
[2020-09-04] MEDS ORDERED: MECL1TAB31 PO (15:57)
[2020-09-04] MEDS ORDERED: vestibular PT (16:00)
[2020-09-04 16:32] VITALS: BP 121/58
--- NOTE | 2020-09-04 19:47 | ECGEPIP ---
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
== END 2020-09-04 16:33 | disposition home or self-care (01) ==
LOC: M ED 13:26 → EDSEX 13:26 → EDBD 13:26 → M ED 16:33
DX: H81.10 Benign paroxysmal vertigo, unspecified ear (principal); I44.0 Atrioventricular block, first degree; E11.9 Type 2 diabetes mellitus without complications; I10 Essential (primary) hypertension; E78.5 Hyperlipidemia, unspecified; Z79.899 Other long term (current) drug therapy; Z79.4 Long term (current) use of insulin; Z88.1 Allergy status to other antibiotic agents; Z88.2 Allergy status to sulfonamides; J30.89 Other allergic rhinitis

== ENCOUNTER 2022-01-16 10:37 | Emergency (ER) | payer MEDICARE, MEDICAID ==
[~2022-01-16] VITALS: Ht 167.6 cm; Wt 109.4 kg
[~2022-01-16 10:37] MED LIST changes: +vestibular PT
[2022-01-16] MEDS ORDERED: TRUL10IN (10:57)
[2022-01-16] MEDS ORDERED: BASA100I (10:57)
[2022-01-16] MEDS ORDERED: FARX1TAB3 (10:57)
[2022-01-16] MEDS ORDERED: TAMS1CAP17 (10:57)
[2022-01-16] MEDS ORDERED: ASPIRIN 81 MG CHEW TABLET PO ONE (11:35)
[2022-01-16 11:47] LABS: BASO # 0.1 10^3/uL (0.0-0.2); BASO % 0.8 % (0.0-1.0); EOS # 0.2 10^3/uL (0.0-0.5); EOS % 2.7 % (0.0-3.0); HEMATOCRIT 39.4 % (42.0-52.0); HEMOGLOBIN 13.3 g/dl (13.5-17.5); LYMPH # 1.2 10^3/uL (1.5-5.0); MEAN CORPUSCULAR HEMOGLOBIN 32.3 pg (27.0-33.0); MEAN CORPUSCULAR HGB CONC 33.8 g/dl (32.0-36.5); MEAN CORPUSCULAR VOLUME 95.6 fl (80.0-96.0); MONO # 0.5 10^3/uL (0.0-0.8); MONO % 7.1 % (2.0-8.0); NEUTROPHILS # 4.4 10^3/uL (1.5-8.5); NEUTROPHILS % 69.8 % (36.0-66.0); PLATELET COUNT, AUTOMATED 156 10^3/uL (150-450); RED BLOOD COUNT 4.12 10^6/uL (4.30-6.10); WHITE BLOOD COUNT 6.3 10^3/uL (4.0-10.0)
[2022-01-16 12:20] LABS: CK-MB VALUE MASS 3.8 NG/ML (<3.6); MB/CK RELATIVE INDEX 3.58 (< OR =4)
[2022-01-16 12:31] LABS: ALBUMIN 3.5 GM/DL (3.2-5.2); ALT/SGPT 55 U/L (12-78); BILIRUBIN,DIRECT 0.1 MG/DL (0.0-0.2); BILIRUBIN,TOTAL 0.2 MG/DL (0.2-1.0); BLOOD UREA NITROGEN 17 MG/DL (7-18); CARBON DIOXIDE LEVEL 23 MEQ/L (21-32); CHLORIDE LEVEL 110 MEQ/L (98-107); GLOMERULAR FILTRATION RATE > 60.0 (>42); GLUCOSE, FASTING 241 MG/DL (70-100); LIPASE 121 U/L (73-393); NT-PRO BNP 523 PG/ML (<125); POTASSIUM SERUM 4.2 MEQ/L (3.5-5.1); SODIUM LEVEL 140 MEQ/L (136-145)
[2022-01-16 13:42] LABS: CK-MB VALUE MASS 3.6 NG/ML (<3.6); MB/CK RELATIVE INDEX 3.83 (< OR =4)
[2022-01-16 14:28] LABS: CK-MB VALUE MASS 3.3 NG/ML (<3.6); MB/CK RELATIVE INDEX 3.59 (< OR =4)
[2022-01-16] MEDS ORDERED: HEPARIN SOD (PORCINE) 5000UNITS/ML 1ML VIAL/SYRINGE IV ONE (14:35)
[2022-01-16] MEDS ORDERED: HEPARIN DRIP 25,000 UNITS in IV 1 EA IV SCH (14:35)
[2022-01-16 15:14] LABS: INR 1.17; PROTHROMBIN TIME 15.3 SECONDS (12.7-14.5)
[2022-01-16 15:15] LABS: PARTIAL THROMBOPLASTIN TIME 28.5 SECONDS (25.9-37.0)
[2022-01-16 15:26] LABS: RSV AMPLIFICATION NEGATIVE (NEGATIVE)
[2022-01-16] MEDS: HEPARIN DRIP 25,000 UNITS in IV 1 EA IV SCH ×2 (15:32→22:40)
[2022-01-16 22:18] LABS: INR 1.17; PROTHROMBIN TIME 15.3 SECONDS (12.7-14.5)
[2022-01-16 22:19] LABS: PARTIAL THROMBOPLASTIN TIME 38.9 SECONDS (25.9-37.0)
[2022-01-17 03:48] LABS: INR 1.17; PROTHROMBIN TIME 15.3 SECONDS (12.7-14.5)
[2022-01-17 03:49] LABS: PARTIAL THROMBOPLASTIN TIME 63.4 SECONDS (25.9-37.0)
[2022-01-17 05:24] VITALS: BP 112/62
== END 2022-01-17 05:28 | disposition short-term general hospital (02) ==
LOC: M ED 10:37
DX: I21.4 Non-ST elevation (NSTEMI) myocardial infarction (principal); E11.9 Type 2 diabetes mellitus without complications; E78.5 Hyperlipidemia, unspecified; I25.10 Atherosclerotic heart disease of native coronary artery without angina pectoris; I25.2 Old myocardial infarction; Z79.899 Other long term (current) drug therapy; Z79.84 Long term (current) use of oral hypoglycemic drugs; Z79.4 Long term (current) use of insulin; Z88.1 Allergy status to other antibiotic agents; Z88.2 Allergy status to sulfonamides; J30.89 Other allergic rhinitis
CPT/HCPCS: 71045; 80048; 80076; 82550; 82553; 83690; 83880; 84443; 84484; 85025; 85610; 85730; 87631; 93005; 93041; 94760; 96374; 96376; 99285; J1644

== ENCOUNTER 2022-06-16 10:43 | Emergency (ER) | payer MEDICARE, MEDICAID ==
[~2022-06-16] VITALS: Ht 172.7 cm; Wt 100.7 kg
[2022-06-16 10:43] VITALS: BP 118/55
[~2022-06-16 10:43] MED LIST changes: +BASA100I; +FARX1TAB3; +TAMS1CAP17; +TRUL10IN
== END 2022-06-16 14:14 | disposition home or self-care (01) ==
LOC: M ED 10:43
DX: L72.3 Sebaceous cyst (principal); E11.9 Type 2 diabetes mellitus without complications; I10 Essential (primary) hypertension; E78.5 Hyperlipidemia, unspecified; J30.89 Other allergic rhinitis; Z79.4 Long term (current) use of insulin; Z79.899 Other long term (current) drug therapy; Z88.2 Allergy status to sulfonamides

== ENCOUNTER 2024-03-04 11:23 | Emergency (ER) | payer MEDICARE, MEDICAID ==
[~2024-03-04] VITALS: Ht 162.6 cm; Wt 94.1 kg
[~2024-03-04 11:23] MED LIST changes: +INSU100I6 SC; -LEVE1INJ5 SC; +MECL-209 PO; -MECL1TAB31 PO; -RAMI1CAP22 PO; +RAMI2.5C42 PO
[2024-03-04 12:28] LABS: BASO # 0.1 10^3/uL (0.0-0.2); BASO % 0.9 % (0.0-1.0); EOS # 0.1 10^3/uL (0.0-0.5); EOS % 1.5 % (0.0-3.0); HEMATOCRIT 37.5 % (42.0-52.0); HEMOGLOBIN 13.2 g/dl (13.5-17.5); LYMPH # 1.3 10^3/uL (1.5-5.0); LYMPH % 21.9 % (24.0-44.0); MEAN CORPUSCULAR HEMOGLOBIN 32.8 pg (27.0-33.0); MEAN CORPUSCULAR HGB CONC 35.2 g/dl (32.0-36.5); MEAN CORPUSCULAR VOLUME 93.1 fl (80.0-96.0); MONO # 0.3 10^3/uL (0.0-0.8); MONO % 5.8 % (2.0-8.0); NEUTROPHILS % 69.2 % (36.0-66.0); PLATELET COUNT, AUTOMATED 142 10^3/uL (150-450); RED BLOOD COUNT 4.03 10^6/uL (4.30-6.10); WHITE BLOOD COUNT 5.8 10^3/uL (4.0-10.0)
[2024-03-04 12:47] LABS: INR 1.28; PARTIAL THROMBOPLASTIN TIME 25.9 SECONDS (24.8-34.2); PROTHROMBIN TIME 15.6 SECONDS (12.5-14.5)
[2024-03-04] MEDS: BOOSTRIX VACCINE (TETANUS/DIPHTH/ACEL. PERTUSSIS) 0.5ML SYR IM ONE (12:48)
[2024-03-04 12:52] LABS: BLOOD UREA NITROGEN 20 MG/DL (9-23); CALCIUM LEVEL 8.8 MG/DL (8.3-10.6); CARBON DIOXIDE LEVEL 25 MMOL/L (20-31); CHLORIDE LEVEL 108 MMOL/L (98-107); CREATININE FOR GFR 1.07 MG/DL (0.70-1.30); GLOMERULAR FILTRATION RATE > 60.0 (>42); GLUCOSE, FASTING 254 MG/DL (74-106); POTASSIUM SERUM 4.4 MMOL/L (3.5-5.1); SODIUM LEVEL 137 MMOL/L (136-145)
[2024-03-04 15:09] VITALS: BP 107/57; O2SAT 99
[2024-03-04 15:25] VITALS: TEMP 96.5
== END 2024-03-04 15:27 | disposition home or self-care (01) ==
LOC: EDBD 11:23 → M ED 11:23
DX: S00.83XA Contusion of other part of head, initial encounter (principal); S00.81XA Abrasion of other part of head, initial encounter; W01.0XXA Fall on same level from slipping, tripping and stumbling without subsequent striking against object, initial encounter; Y92.9 Unspecified place or not applicable; Y93.9 Activity, unspecified; Y99.9 Unspecified external cause status; I10 Essential (primary) hypertension; E11.9 Type 2 diabetes mellitus without complications; J30.89 Other allergic rhinitis; E78.5 Hyperlipidemia, unspecified; K05.6 Periodontal disease, unspecified; Z79.4 Long term (current) use of insulin; Z79.899 Other long term (current) drug therapy; Z88.2 Allergy status to sulfonamides

== ENCOUNTER 2025-06-06 15:49 | Emergency (ER) | payer OTHER, MEDICAID ==
[~2025-06-06] VITALS: Ht 172.7 cm; Wt 98.3 kg
[2025-06-06 18:17] VITALS: BP 135/65; TEMP 98; O2SAT 95
== END 2025-06-06 18:20 | disposition home or self-care (01) ==
LOC: M ED 15:49 → EDBD 15:49 → M ED 18:20
DX: S00.81XA Abrasion of other part of head, initial encounter (principal); W01.198A Fall on same level from slipping, tripping and stumbling with subsequent striking against other object, initial encounter; M50.31 Other cervical disc degeneration, high cervical region; M25.78 Osteophyte, vertebrae; M75.42 Impingement syndrome of left shoulder; I10 Essential (primary) hypertension; E78.5 Hyperlipidemia, unspecified; E11.9 Type 2 diabetes mellitus without complications; Z79.1 Long term (current) use of non-steroidal anti-inflammatories (NSAID); Z79.02 Long term (current) use of antithrombotics/antiplatelets; Z79.899 Other long term (current) drug therapy; Z79.4 Long term (current) use of insulin; Z88.2 Allergy status to sulfonamides; Z91.09 Other allergy status, other than to drugs and biological substances; Y92.410 Unspecified street and highway as the place of occurrence of the external cause; Y93.89 Activity, other specified; Y99.9 Unspecified external cause status

== ENCOUNTER 2025-06-12 12:30 | Inpatient (IN) | payer OTHER, MEDICAID ==
[~2025-06-12] VITALS: Ht 172.7 cm; Wt 87.7 kg
[2025-06-12] MEDS: LIDOCAINE 2% 5 ML JELLY UROJET TOP ONE (13:48)
[2025-06-12 13:55] LABS: INR 1.23
[2025-06-12 13:57] LABS: BASO # 0.1 10^3/uL (0.0-0.2); BASO % 0.6 % (0.0-1.0); EOS # 0.1 10^3/uL (0.0-0.5); EOS % 0.9 % (0.0-3.0); LYMPH # 1.1 10^3/uL (1.5-5.0); LYMPH % 11.7 % (24.0-44.0); MONO # 0.8 10^3/uL (0.0-0.8); MONO % 7.8 % (2.0-8.0); NEUTROPHILS # 7.6 10^3/uL (1.5-8.5); NEUTROPHILS % 78.6 % (36.0-66.0); PLATELET COUNT, AUTOMATED 181 10^3/uL (150-450)
[2025-06-12 13:59] LABS: CALCIUM LEVEL 9.0 MG/DL (8.3-10.6); CARBON DIOXIDE LEVEL 19.0 MMOL/L (20-31); CHLORIDE LEVEL 108.0 MMOL/L (98-107); CREATININE FOR GFR 0.88 MG/DL (0.70-1.30); GLOMERULAR FILTRATION RATE 88.6 (>42); POTASSIUM SERUM 4.5 MMOL/L (3.5-5.1); SODIUM LEVEL 145.0 MMOL/L (136-145)
[2025-06-12 14:00] LABS: ALT/SGPT 46.0 U/L (7.0-40); AST/SGOT 43.0 U/L (<34); C REACTIVE PROTEIN QUANTITATIV 4.21 MG/DL (<1.0)
[2025-06-12 14:03] LABS: CPK CREATINE PHOSPHOKINASE 180.0 U/L (46-171)
[2025-06-12 16:58] LABS: KETONE, URINE AUTO RFX 1+ mg/dL (NEGATIVE); LEUKOCYTE ESTERASE UR AUTO RFX NEGATIVE (NEGATIVE); MUCUS, URINE RFX SMALL (NEGATIVE); NITRITE, URINE AUTO RFX NEGATIVE (NEGATIVE); RBC, URINE AUTO RFX 7 /HPF (0-3); SQUAM EPITHELIAL CELL UR AURFX 0 /HPF (0-6); WBC, URINE AUTO RFX 2 /HPF (0-3)
[2025-06-12] MEDS ORDERED: HUMA100I5 SC (17:19)
[2025-06-12] MEDS ORDERED: METO1TAB32 PO (17:19)
[2025-06-12] MEDS ORDERED: EZET10TA57 PO (17:19)
[2025-06-12] MEDS ORDERED: SEMA2PEN SQ (17:19)
[2025-06-12] MEDS ORDERED: LANTINJ4 SC (17:19)
[2025-06-12] MEDS ORDERED: ATOR80TA59 PO (17:19)
[2025-06-12] MEDS ORDERED: HOME MED LIST COMPLETE! XX SCH (17:20)
[2025-06-12 21:41] LABS: CALCIUM LEVEL 8.3 MG/DL (8.3-10.6); CARBON DIOXIDE LEVEL 21.0 MMOL/L (20-31); CHLORIDE LEVEL 109.0 MMOL/L (98-107); CREATININE FOR GFR 0.89 MG/DL (0.70-1.30); GLOMERULAR FILTRATION RATE 88.3 (>42); POTASSIUM SERUM 3.9 MMOL/L (3.5-5.1); SODIUM LEVEL 144.0 MMOL/L (136-145)
[2025-06-12] MEDS ORDERED: MOM 30 ML SUSPENSION UDC PO PRN (22:30)
[2025-06-12] MEDS ORDERED: DEXTROSE 50% 50 ML SYRINGE IV PRN (22:35)
[2025-06-12] MEDS ORDERED: GLUCAGON INJ 1 MG VIAL SC PRN (22:35)
[2025-06-12] MEDS ORDERED: GLUCOSE 4 GM CHEW PO PRN (22:35)
[2025-06-12] MEDS: NS (Normal Saline) 0.9% 1,000 ML IV ONE (22:58)
[2025-06-13] MEDS: INSULIN LISPRO (NovoLOG) PER UNIT SC SCH ×2 (08:28→20:37)
[2025-06-13] MEDS: METOPROLOL SUCC. 25 MG *XL* TAB PO SCH (10:27)
[2025-06-13] MEDS: EZETIMIBE 10 MG TABLET PO SCH (10:27)
[2025-06-13] MEDS: ATORVASTATIN 20 MG TAB PO SCH (10:27)
[2025-06-13] MEDS: LanTUS (INSULIN GLARGINE INJ) 1 UNITS/0.01 ML SC SCH (10:28)
[2025-06-13 11:05] LABS: ALT/SGPT 42 U/L (7.0-40); AST/SGOT 36 U/L (<34); CALCIUM LEVEL 8.4 MG/DL (8.3-10.6); CARBON DIOXIDE LEVEL 25 MMOL/L (20-31); CHLORIDE LEVEL 108 MMOL/L (98-107); CREATININE FOR GFR 0.82 MG/DL (0.70-1.30); GLOMERULAR FILTRATION RATE > 90.0 (>42); POTASSIUM SERUM 3.7 MMOL/L (3.5-5.1); SODIUM LEVEL 143 MMOL/L (136-145)
[2025-06-13 16:16] VITALS: BP 122/58; TEMP 98.2; O2SAT 95
[2025-06-13 20:03] VITALS: BP 108/55; TEMP 98.8; O2SAT 95
[2025-06-13] MEDS: ACETAMINOPHEN 325 MG TAB PO PRN (20:54)
[2025-06-14 04:12] VITALS: BP 114/58; TEMP 98.1; O2SAT 95
[2025-06-14 06:14] LABS: PLATELET COUNT, AUTOMATED 132 10^3/uL (150-450)
[2025-06-14 06:45] LABS: ALT/SGPT 38.0 U/L (7.0-40); AST/SGOT 30.0 U/L (<34); CALCIUM LEVEL 8.2 MG/DL (8.3-10.6); CARBON DIOXIDE LEVEL 24.0 MMOL/L (20-31); CHLORIDE LEVEL 107.0 MMOL/L (98-107); CREATININE FOR GFR 0.86 MG/DL (0.70-1.30); GLOMERULAR FILTRATION RATE 89.2 (>42); POTASSIUM SERUM 3.5 MMOL/L (3.5-5.1); SODIUM LEVEL 141.0 MMOL/L (136-145)
[2025-06-14] MEDS: ENOXAPARIN 40 MG/0.4 ML SYRINGE (J1650 PER 10MG) SC SCH (09:38)
[2025-06-14] MEDS: TAMSULOSIN 0.4 MG CAP PO SCH (09:38)
[2025-06-14 12:00] VITALS: BP 104/53; TEMP 98.1; O2SAT 96
[2025-06-14 14:31] VITALS: BP 117/58; TEMP 98.2; O2SAT 97
[2025-06-14] MEDS ORDERED: INSULIN LISPRO (NovoLOG) PER UNIT SC SCH (17:30)
[2025-06-14] MEDS: INSULIN LISPRO (NovoLOG) PER UNIT SC SCH (17:56)
[2025-06-14 20:29] VITALS: BP 108/59; TEMP 98.6; O2SAT 99
[2025-06-14] MEDS: LanTUS (INSULIN GLARGINE INJ) 1 UNITS/0.01 ML SC SCH (21:02)
[2025-06-15 06:46] LABS: PLATELET COUNT, AUTOMATED 120 10^3/uL (150-450)
[2025-06-15 07:01] LABS: ALT/SGPT 37 U/L (7.0-40); AST/SGOT 26 U/L (<34); CALCIUM LEVEL 7.8 MG/DL (8.3-10.6); CARBON DIOXIDE LEVEL 25 MMOL/L (20-31); CHLORIDE LEVEL 106 MMOL/L (98-107); CREATININE FOR GFR 0.82 MG/DL (0.70-1.30); GLOMERULAR FILTRATION RATE > 90.0 (>42); POTASSIUM SERUM 3.9 MMOL/L (3.5-5.1); SODIUM LEVEL 142 MMOL/L (136-145)
[2025-06-16 04:51] VITALS: BP 114/57; TEMP 98.5; O2SAT 96
[2025-06-16 06:50] LABS: PLATELET COUNT, AUTOMATED 123 10^3/uL (150-450)
[2025-06-16 07:16] LABS: ALT/SGPT 36.0 U/L (7.0-40); AST/SGOT 26.0 U/L (<34); CALCIUM LEVEL 8.1 MG/DL (8.3-10.6); CARBON DIOXIDE LEVEL 26.0 MMOL/L (20-31); CHLORIDE LEVEL 105.0 MMOL/L (98-107); CREATININE FOR GFR 0.87 MG/DL (0.70-1.30); GLOMERULAR FILTRATION RATE 88.9 (>42); POTASSIUM SERUM 4.1 MMOL/L (3.5-5.1); SODIUM LEVEL 139.0 MMOL/L (136-145)
[2025-06-17 04:31] VITALS: BP 131/65; TEMP 98.6; O2SAT 95
[2025-06-18 03:01] VITALS: BP 123/59; TEMP 98.7; O2SAT 97
[2025-06-18 08:01] VITALS: BP 90/54
[2025-06-18 08:03] VITALS: BP 90/54
[2025-06-18 08:31] VITALS: BP 98/52
[2025-06-19 03:21] VITALS: BP 106/58; TEMP 98.2; O2SAT 96
[2025-06-20 04:55] VITALS: BP 117/62; TEMP 98.3; O2SAT 95
[2025-06-20 12:00] VITALS: BP 107/57; TEMP 98.2; O2SAT 97
[2025-06-20] MEDS: LanTUS (INSULIN GLARGINE INJ) 1 UNITS/0.01 ML SC SCH (20:39)
[2025-06-21 03:17] VITALS: BP 115/62; TEMP 98.4; O2SAT 96
[2025-06-22 03:29] VITALS: BP 123/57; TEMP 97.8; O2SAT 95
== END 2025-06-22 15:25 | disposition home health service (06) | DRG 948 ==
LOC: EDBD 12:30 → M ED 12:30 → CANBEDREQ 19:46 → INTOOBSV 06-13 12:31 → M ED INP 06-13 12:31 → OBSVTOIN 06-13 12:31 → M MSPAV 06-13 16:02 → OBSVTOIN 06-21 14:28 → INTOOBSV 06-21 14:28 → OBSVTOIN 06-21 15:43
PROVIDERS: ADMIT Internal Medicine; ATTEND Internal Medicine
DX: R53.1 Weakness (principal); R29.6 Repeated falls; E11.9 Type 2 diabetes mellitus without complications; I10 Essential (primary) hypertension; E78.5 Hyperlipidemia, unspecified; I25.10 Atherosclerotic heart disease of native coronary artery without angina pectoris; I25.2 Old myocardial infarction; F03.90 Unspecified dementia, unspecified severity, without behavioral disturbance, psychotic disturbance, mood disturbance, and anxiety; R74.01 Elevation of levels of liver transaminase levels; F70 Mild intellectual disabilities; R33.9 Retention of urine, unspecified; Z79.4 Long term (current) use of insulin; Z79.899 Other long term (current) drug therapy; Z88.2 Allergy status to sulfonamides

== ENCOUNTER → 2025-07-05 | Outpatient (REF) | payer OTHER, MEDICAID ==
[~2025-07-05] MED LIST changes: +ATOR80TA59 PO; +EZET10TA57 PO; +HUMA100I5 SC; +LANTINJ4 SC; +METO1TAB32 PO; +SEMA2PEN SQ
== END ==
LOC: M LAB REF 12:07
PROVIDERS: ATTEND Internal Medicine
DX: R30.0 Dysuria (principal); N39.0 Urinary tract infection, site not specified

== ENCOUNTER 2025-07-13 23:37 | Emergency (ER) | payer OTHER, MEDICAID ==
[~2025-07-13] VITALS: Ht 175.3 cm; Wt 86.9 kg
[2025-07-13 23:51] VITALS: TEMP 96.6
[2025-07-14 00:25] LABS: OSMOLALITY SERUM 314.0 MOSM/KG (280-301)
[2025-07-14 00:31] LABS: VENOUS BASE EXCESS 1.7 (-2.0-2.0); VENOUS HCO3 27.2 MMOL/L (23.0-27.0); VENOUS O2 SATURATION 51.1 % (60.0-80.0); VENOUS PARTIAL PRESSURE CO2 45.9 mmHg (38.0-50.0); VENOUS PARTIAL PRESSURE O2 28.5 mmHg (30.0-50.0); VENOUS PH 7.390 UNITS (7.330-7.430); VENOUS STANDARD HCO3 24.9 MMOL/L; VENOUS TOTAL CO2 28.6 MMOL/L (24.0-28.0)
[2025-07-14 00:36] LABS: BASO # 0.1 10^3/uL (0.0-0.2); BASO % 0.5 % (0.0-1.0); EOS # 0.1 10^3/uL (0.0-0.5); EOS % 1.0 % (0.0-3.0); LYMPH # 1.4 10^3/uL (1.5-5.0); LYMPH % 14.1 % (24.0-44.0); MONO # 0.5 10^3/uL (0.0-0.8); MONO % 4.7 % (2.0-8.0); NEUTROPHILS # 7.7 10^3/uL (1.5-8.5); NEUTROPHILS % 78.6 % (36.0-66.0); PLATELET COUNT, AUTOMATED 159 10^3/uL (150-450)
[2025-07-14 00:37] LABS: ACETONE/KETONE 0.17 MMOL/L (0.02-0.27)
[2025-07-14 00:56] LABS: ESTIMATED AVERAGE GLUCOSE 240.0 MG/DL (60-110)
[2025-07-14 00:57] LABS: ALT/SGPT 49.0 U/L (7.0-40); AST/SGOT 51.0 U/L (<34); CK-MB VALUE MASS 1.6 NG/ML (<3.6); CPK CREATINE PHOSPHOKINASE 78.0 U/L (46-171); MB/CK RELATIVE INDEX 2.05 (< OR =4)
[2025-07-14] MEDS: NS (Normal Saline) 0.9% 1,000 ML IV ONE (01:03)
[2025-07-14] MEDS: HumuLIN R (REGULAR) INSULIN (NovoLIN R) **100 U/ML** PER UNIT IV ONE (01:03)
[2025-07-14 04:34] VITALS: BP 111/57; O2SAT 98
== END 2025-07-14 04:36 | disposition home or self-care (01) ==
LOC: M ED 23:37
DX: S00.03XA Contusion of scalp, initial encounter (principal); E11.65 Type 2 diabetes mellitus with hyperglycemia; W22.8XXA Striking against or struck by other objects, initial encounter; Y92.009 Unspecified place in unspecified non-institutional (private) residence as the place of occurrence of the external cause; Y93.9 Activity, unspecified; Y99.9 Unspecified external cause status; I10 Essential (primary) hypertension; E78.5 Hyperlipidemia, unspecified; J30.2 Other seasonal allergic rhinitis; Z79.4 Long term (current) use of insulin; Z79.899 Other long term (current) drug therapy; Z88.2 Allergy status to sulfonamides
CPT/HCPCS: 70450; 71045; 72125; 80047; 80076; 82010; 82550; 82553; 82803; 83036; 83605; 83690; 83930; 84443; 84484; 85025; 93005; 93041; 94760; 96361; 96374; 99285; J1815

== ENCOUNTER 2025-07-17 08:56 | Observation (INO) | payer OTHER, MEDICAID ==
[~2025-07-17] VITALS: Ht 154.9 cm; Wt 90.6 kg
[2025-07-17] MEDS: LIDOCAINE 2% 5 ML JELLY UROJET TOP ONE (09:51)
[2025-07-17 09:59] LABS: BASO # 0.1 10^3/uL (0.0-0.2); BASO % 0.5 % (0.0-1.0); EOS # 0.0 10^3/uL (0.0-0.5); EOS % 0.4 % (0.0-3.0); LYMPH # 1.4 10^3/uL (1.5-5.0); LYMPH % 13.7 % (24.0-44.0); MONO # 0.5 10^3/uL (0.0-0.8); MONO % 5.0 % (2.0-8.0); NEUTROPHILS # 8.2 10^3/uL (1.5-8.5); NEUTROPHILS % 79.3 % (36.0-66.0); PLATELET COUNT, AUTOMATED 174 10^3/uL (150-450)
[2025-07-17 10:00] LABS: KETONE, URINE AUTO RFX TRACE mg/dL (NEGATIVE); MUCUS, URINE RFX SMALL (NEGATIVE); NITRITE, URINE AUTO RFX NEGATIVE (NEGATIVE); RBC, URINE AUTO RFX 3 /HPF (0-3); SQUAM EPITHELIAL CELL UR AURFX 0 /HPF (0-6)
[2025-07-17 10:25] LABS: ALT/SGPT 49.0 U/L (7.0-40); AST/SGOT 29.0 U/L (<34); CALCIUM LEVEL 9.0 MG/DL (8.3-10.6); CARBON DIOXIDE LEVEL 28.0 MMOL/L (20-31); CHLORIDE LEVEL 102.0 MMOL/L (98-107); CREATININE FOR GFR 1.12 MG/DL (0.70-1.30); GLOMERULAR FILTRATION RATE 67.7 (>42); POTASSIUM SERUM 4.6 MMOL/L (3.5-5.1); SODIUM LEVEL 137.0 MMOL/L (136-145)
[2025-07-17] MEDS ORDERED: ISOVUE-370 76% 100 ML VIAL As Ordered ONE (10:27)
[2025-07-17 10:31] LABS: LEUKOCYTE ESTERASE UR AUTO RFX TRACE (NEGATIVE); WBC, URINE AUTO RFX 27 /HPF (0-3)
[2025-07-17] MEDS: NS 500 ML IV ONE ×2 (10:46→13:01)
[2025-07-17] MEDS: HumuLIN R (REGULAR) INSULIN (NovoLIN R) **100 U/ML** PER UNIT IV ONE (11:29)
[2025-07-17] MEDS ORDERED: HOME MED LIST COMPLETE! XX SCH (11:40)
[2025-07-17] MEDS ORDERED: GLUCOSE 4 GM CHEW PO PRN (15:45)
[2025-07-17] MEDS ORDERED: GLUCAGON INJ 1 MG VIAL SC PRN (15:45)
[2025-07-17] MEDS ORDERED: DEXTROSE 50% 50 ML SYRINGE IV PRN (15:45)
[2025-07-17] MEDS: NS (Normal Saline) 0.9% 1,000 ML IV SCH (16:10)
[2025-07-17] MEDS: MIRALAX *UNIT DOSE* 17 GM PACKET PO SCH (16:10)
[2025-07-17 16:40] VITALS: BP 137/65; TEMP 98.3; O2SAT 97
[2025-07-17] MEDS: BISACODYL ENEMA 10 MG/30 ML PR ONE (17:15)
[2025-07-17] MEDS: INSULIN LISPRO (NovoLOG) PER UNIT SC SCH ×2 (17:50→20:05)
[2025-07-17] MEDS: cefTRIAXone SOD 1 GM in DEXTROSE 5% (D5W) ADV/MINI-BAG 50 ML IV ONE (17:50)
[2025-07-17 20:00] VITALS: BP 115/56; TEMP 97.5; O2SAT 95
[2025-07-17] MEDS: SENNA 8.6 MG TAB PO SCH (20:36)
[2025-07-18 04:00] VITALS: BP 107/59; TEMP 97.3; O2SAT 95
[2025-07-18] MEDS ORDERED: EZETIMIBE 10 MG TABLET PO SCH (09:00)
[2025-07-18] MEDS ORDERED: ENOXAPARIN 40 MG/0.4 ML SYRINGE (J1650 PER 10MG) SC SCH (09:00)
[2025-07-18] MEDS: DOCUSATE SODIUM 100 MG CAPSULE PO SCH (09:24)
[2025-07-18] MEDS: SENNA 8.6 MG TAB PO SCH (09:24)
[2025-07-18] MEDS: CEFDINIR 300 MG CAP PO SCH (09:25)
[2025-07-18] MEDS: ATORVASTATIN 20 MG TAB PO SCH (09:25)
[2025-07-18] MEDS: METOPROLOL SUCC. 25 MG *XL* TAB PO SCH (09:25)
[2025-07-18 10:11] LABS: PLATELET COUNT, AUTOMATED 172 10^3/uL (150-450)
[2025-07-18] MEDS ORDERED: CEFD300CAP PO (11:09)
[2025-07-18] MEDS ORDERED: SENN-23 PO (11:09)
[2025-07-18] MEDS ORDERED: MIRA33506 PO (11:09)
[2025-07-18 11:42] LABS: CALCIUM LEVEL 8.5 MG/DL (8.3-10.6); CARBON DIOXIDE LEVEL 28.0 MMOL/L (20-31); CHLORIDE LEVEL 106.0 MMOL/L (98-107); CREATININE FOR GFR 0.88 MG/DL (0.70-1.30); GLOMERULAR FILTRATION RATE 88.6 (>42); POTASSIUM SERUM 4.1 MMOL/L (3.5-5.1); SODIUM LEVEL 142.0 MMOL/L (136-145)
[2025-07-18] MEDS ORDERED: PNEUMOC 21-VAL CONJ-DIP CRM/PF 0.5 ML SYRINGE IM.IMMUN ONE (15:00)
== END 2025-07-18 12:47 | disposition home or self-care (01) ==
LOC: M ED 08:56 → EDBD 08:56 → M ED INP 15:57 → M MS4PR 16:40
PROVIDERS: ADMIT Student in an Organized Health Care Education/Training Program; ATTEND Student in an Organized Health Care Education/Training Program
DX: K59.00 Constipation, unspecified (principal); N20.1 Calculus of ureter; B95.7 Other staphylococcus as the cause of diseases classified elsewhere; E86.0 Dehydration; E87.20 Acidosis, unspecified; R63.8 Other symptoms and signs concerning food and fluid intake; R42 Dizziness and giddiness; E11.65 Type 2 diabetes mellitus with hyperglycemia; I10 Essential (primary) hypertension; E78.5 Hyperlipidemia, unspecified; I25.10 Atherosclerotic heart disease of native coronary artery without angina pectoris; E66.9 Obesity, unspecified; Z79.899 Other long term (current) drug therapy; Z88.2 Allergy status to sulfonamides; J30.1 Allergic rhinitis due to pollen
CPT/HCPCS: 36415; 74021; 74177; 80047; 80048; 80076; 81001; 82150; 83605; 83690; 85025; 85027; 87088; 87186; 87486; 87581; 87633; 87798; 93041; 96365; 96375; 99285; G0378; J0696; J1815; Q9967